=== PATIENT | female | born 1945 | race Caucasian/White ===

== ENCOUNTER 2017-04-22 16:58 | Observation (INO) | payer MEDICARE ==
[~2017-04-22 16:58] MED LIST: ALLEGRA 60 MG T60 MG PO; AMBIEN5 MG PO; ARTIFICIAL TEAR15 ML EACH EYE; ASPIRIN325 MG PO; ATIVAN0.5 MG PO; ATIVAN2 MG/ML IV; BAYER CHEWABLE81 MG PO; BOUDREAUXS113 GM TP; BREO ELLIPTA 11 EACH INH; CELEXA20 MG PO; COMBIVENT INH14.7 GM INH; COMBIVENT RESPIM4 GM; COREG12.5 MG PO; CRESTOR10 MG PO; DEXTROSE 50%/WA50 ML IV; DULCOLAX10 MG/SUPP RC; EFFEXOR50 MG PO; EFFEXOR75 MG PO; EUCERIN ORIGIN500 ML TP; FLORANEX / LACT1 TAB PO; GLUCAGEN1 MG/VIAL IM; GLUCAGEN1 MG/VIAL SC; GLUCAGON1 MG/KIT IM; GLUCAGON1 MG/KIT SQ; GLUCOPHAGE500 MG PO; HALOPERIDOL2 MG IM; HALOPERIDOL2 MG PO; HEALTHYLAX17 GM PO; HUMALOG 30100 UNITS/; HUMALOG 30100 UNITS/ SC; HYDROCODON-ACE1 EAC7 PO; HYDROCODONE-APA1 TAB PO; IMDUR30 MG PO; INSTA-GLUCOSE31 GM; IPRAT-ALBUT 0.5-3 ML UPD; K-DUR20 MEQ PO; LASIX20 MG PO; LEVAQUIN250 MG PO; LEVAQUIN500 MG PO; LEVOTHROID100 MCG PO; LEVOTHROID88 MCG PO; LOTRISONE CREAM45 GM TP; MAALOX PLUS X-355 ML PO; MAG-OX 400 MG400 MG PO; MILK OF MAGNESI30 ML PO; MIRALAX17 GM PO; MOTRIN600 MG PO; MYLANTA / MAALO30 ML PO; NAMENDA10 MG PO; NAMENDA5 MG PO; NAPROSYN250 MG PO; NITRO-DUR0.4 MG TRANSDERM; NITROSTAT0.4 MG SL; NORCO 5/325 TAB1 TA1 PO; NYSTATIN1 PWD TOPICAL; NYSTATIN60 GM TP; PEPCID20 MG PO; PHENERGAN25 M1 PO; PLAVIX75 MG PO; PRILOSEC20 MG PO; PROTONIX40 MG PO; SENNA8.6 MG PO; SENOKOT-S TABLE1 TAB PO; SODIUM CL 0.91000 ML IV; SYNTHROID125 MCG PO; SYNTHROID150 MCG PO; SYNTHROID200 MC1 PO; TOPAMAX50 MG PO; TOPROL XL25 MG PO; TRIAMCINOLONE A60 M1; TRIAMCINOLONE A60 M1 TP; TYLENOL 8 HOUR650 MG; TYLENOL ARTHRI650 MG PO; ULORIC40 MG PO; VASOTEC5 MG PO; VITAMIN B-12500 MCG PO; XOPENEX 1.1.25 MG/3 UPD; ZANTAC150 MG PO; ZESTRIL40 MG PO; ZETIA10 MG PO; ZOCOR10 MG PO; ZOCOR20 MG PO; ZYLOPRIM100 MG PO; ZYRTEC10 MG PO
[2017-04-22 17:49] LABS: BASOPHILS 0.1 % (0-2); EOSINOPHILS 2.5 % (0-7); HEMATOCRIT 48.8 % (36.0-48.0); HEMOGLOBIN 16.1 g/dL (12-16); IMMATURE GRANULOCYTES 0.6 % (0-5); LYMPHOCYTES 23.5 % (15-50); MCH 27.4 pg (26.0-34.0); MCV 83.1 fL (80.0-100.0); MEAN PLATELET VOLUME 9.4 fL (7.4-10.4); MONOCYTES 9.3 % (2-11); PLATELET COUNT 166 10x3/uL (130-400); RBC 5.87 10x6/uL (4.00-5.40); RDW 14.3 % (11.5-14.5); WBC 8.5 10x3/uL (4.8-10.8)
[2017-04-22 18:04] LABS: ALBUMIN 3.2 g/dL (3.4-5.0); ALKALINE PHOSPHATASE 204 U/L (46-116); ALT (SGPT) 19 U/L (10-68); BILIRUBIN - TOTAL 0.31 mg/dL (0.2-1.3); CALC OSMOLALITY 274 mosm/kg (275-300); CALCIUM 10.6 mg/dL (8.5-10.1); CARBON DIOXIDE 23.6 mmol/L (21.0-32.0); CHLORIDE - SERUM 106 mmol/L (98-107); GLUCOSE 91 mg/dL (74-106); POTASSIUM - SERUM 4.4 mmol/L (3.5-5.1); PROTEIN - SERUM 7.4 g/dL (6.4-8.2); SODIUM 137 mmol/L (136-145); UREA NITROGEN 15 mg/dL (7-18); eGFR NON AFRICAN AMERICAN 58 mL/min (90-120)
[2017-04-22 18:14] LABS: CKMB 0.2 U/L (0.0-3.6); CREATINE KINASE 39 UL (21-215); PRO BNP 968 pg/mL (0-125); TROPONIN-I 0.017 ng/mL (0.000-0.060)
--- NOTE | 2017-04-22 22:56 | NUR ---
PATIENT ARRIVED FROM THE ER VIA STRETCHER, ALERT. ORIENTED TO ROOM AND CALL LIGHT. DENIES PAIN OR NEEDS AT THIS TIME. WILL CONTINUE TO MONITOR.
[2017-04-23] VITALS (7 sets, daily range): BP systolic 110–154; BP diastolic 52–79; BMI 20.9
--- NOTE | 2017-04-23 07:35 | NUR ---
ASSESSMENT COMPLETED. ALERT, TALKTIVE. TELEMERTY SHOWS SB AT 54. SL TO LEFT ARM. DENIES ANY NEEDS. CALL LIGHT IN REACH WITH SR UP. WILL MONITOR
--- NOTE | 2017-04-23 11:04 | NUR ---
SLEEPING AT PRESENT. MONITOR SHOWS SINUS GUSTAVO @ RATE OF 47. WILL CONTINUE TO MONITOR.
[2017-04-23] MEDS ORDERED: COREG12.5 MG PO (12:29)
[2017-04-23] MEDS ORDERED: SYNTHROID88 MCG PO (12:38)
[2017-04-23] MEDS ORDERED: CALCIUM 500 +1 EAC3 PO (12:41)
[2017-04-23] MEDS ORDERED: REFRESH TEARS15 ML EACH EYE (12:43)
[2017-04-23] MEDS ORDERED: CRANBERRY 400 M1 TA1 PO (12:44)
--- NOTE | 2017-04-23 13:00 | NUR ---
LYING QUIETLY. DENIES ANY CHEST PAIN. CALL LIGHT IN REACH
--- NOTE | 2017-04-23 13:31 | NUR ---
RATIONALE FOR SCD'S EXPLAINED. REFUSED SCD'S
--- NOTE | 2017-04-23 14:07 | NUR ---
SPOKE WITH KAVEH MORTON CNP ABOUT PLAN FOR PATIENT. SHE IS GOING TO FINISH CYCLING THE ENZYMES AND THEN SEND THE PATIENT HOME. CALL WAS PLACED TO [facility] TO SEE IF THEY WOULD BE ABLE TO TAKE HER BACK ON A WEDNESDAY. SPOKE WITH JERED AND THEY WILL BE ABLE TO GET HER AT 1200 BUT NOT LATER. THEY ONLY HAVE A [employer] MILLING MACHINE OPERATOR FOR PART OF THE DAY. THIS INFORMATION WAS RELAYED TO KAVEH AND ORDER WILL BE PUT IN TONIGHT TO DISCHARGE IN AM. THIS INFORMATION WAS ALSO RELAYED TO PATIENTS NURSE, DONAVON. REPORT WILL NEED TO BE CALLED TO [phone] IN THE AM.
--- NOTE | 2017-04-23 17:50 | NUR ---
LYING QUIETLY. DENIES ANY NEEDS. SR UP WITH CALL LIGHT IN REACH
--- NOTE | 2017-04-23 19:29 | NUR ---
PT RESTING IN BED. SIGNED AND DATE ON BOARD. PT LAYING FLAT ON BACK. PT DID NOT HAVE O2 IN NARES. PUT BACK IN NARES AND PT SMILED AND SAID SHE FORGOT. PT ON 3L NC. PT LEFT FOREARM IV S/L. PT DENIES ANY NEEDS. NO S/S OF DISTRESS. WILL CPOC
--- NOTE | 2017-04-23 22:05 | NUR ---
2 UNITS GIVEN FOR A FSBS OF 194. PT HAD O2 OFF AGAIN. FACE IS FLUSHED. PUT BACK ON PT. PT DENIES ANY NEEDS AT THIS TIME. NO S/S OF DISTRESS. WILL CPOC
[2017-04-24] VITALS: BP 180/93
--- NOTE | 2017-04-24 02:00 | NUR ---
PT ASLEEP. RESPONDS TO VERBAL STIMULI. PT O2 3L NC. PT REPOSITIONED FOR COMFORT. PT DENIES ANY NEEDS. NO S/S OF DISTRESS. WILL CPOC
[2017-04-24 04:00] VITALS: BP 170/81
--- NOTE | 2017-04-24 06:02 | NUR ---
PT RESTING IN BED. BRIEF CHANGED. INCONT A MOD AMOUNT OF URINE. PT CLEANED AND LINEN CHANGED. PT OFFERED NOURISHMENT. PT DENIES ANY NEEDS. NO S/S OF DISTRESS. WILL CPOC
--- NOTE | 2017-04-24 07:32 | NUR ---
AM ROUNDS PT IN BED, WITH EYES CLOSED, EASILY AROUSES TO VOICE. RESP EVEN AND UNLABORED. LT HAND INFUSING NS AT 15CC/HR. BED LOW AND WHEELS LOCKED, BEDSIDE RAILS X2, CALL LIGHT IN REACH, NAD NOTED, WILL CONTINUE TO MONITOR.
[2017-04-24 08:28] VITALS: BP 141/72
--- NOTE | 2017-04-24 08:46 | NUR ---
NOTICED PT WAS AT HER DOOR, NAKED, PT CONFUSED, PULLED OUT IV, PULLED TELEMETRY AND OXYGEN TOO. REORIENTED PT AND HELPED HER BACK TO BED, PUT GOWN ON PT. PT DENIES ANY NEEDS. AM MEDS GIVEN AT THIS TIME. CALL LIGHT IN REACH, NAD NOTED, WILL CONTINUE TO MONITOR.
--- NOTE | 2017-04-24 11:35 | NUR ---
BLOOS SUGAR OF 210, 4UNITS OF HUMALOG GIVEN PER S/S. ALSO PROVIDED VERBAL AND WRITTEN DISCHARGE TEACHING TO PT. PT VERBALIZED UNDERSTANDING REGARDING TEACHING. PT ALL READY FOR SEED BUYER. DENIES ANY NEEDS AT THIS TIME. CALL LIGHT IN REACH, NAD NOTED, WILL CONTINUE TO MONITOR.
--- NOTE | 2017-04-24 11:43 | NUR ---
CALLED [facility] AT [phone] AND GAVE REPORT TO SHANAE COVARRUBIAS WHO WILL BE TAKING CARE OF PT.
--- NOTE | 2017-04-24 11:56 | NUR ---
[facility] STAFF HERE TO PICK PT UP. PT LEFT UNIT VIA WHEELCHAIR, NAD NOTED.
--- NOTE | 2017-04-27 12:01 | CN ---
PATIENT NAME:MADELINE FLORES MEDICAL RECORD: [id number] : 49 LOCATION:D. D.2121 ADMIT DATE: 04/22/17 ACCOUNT: [id number] CONSULTING PHYSICIAN: WANDER HA MD REFERRING PHYSICIAN: LJ LEDEZMA MD DATE OF CONSULTATION: 04/23/2017 HISTORY OF PRESENT ILLNESS: A 72-year-old female with a history of coronary artery disease, obstructive pulmonary disease, a somewhat poor historian, admitted with shortness of breath, fatigue, tiredness, and had some atypical chest pain. Enzymes negative at this point. The patient refused blood draws previously. ECG is sinus rafi, but no acute change. We are asked to see her concerning her cardiovascular status. PAST MEDICAL HISTORY: Includes; 1. History of hypertension. 2. Coronary artery disease. 3. Obstructive pulmonary disease. 4. Dementia. SOCIAL HISTORY: Currently resides in a fdc. MEDICATIONS: Include Plavix 75 mg every day, carvedilol 12.5 b.i.d., lisinopril 40 every day, Crestor 40 every day, aspirin 81 every day, [place] 5/325 one q.6 p.r.n., Ativan 0.5 q.4 p.r.n., Namenda 10 every day, Effexor 50 every day, insulin per scale, Synthroid 50 mcg every day. REVIEW OF SYSTEMS: Somewhat unobtainable per above. Somewhat rambling history. PHYSICAL EXAMINATION: GENERAL: Pleasant female, in no acute distress. VITAL SIGNS: Blood pressure 139/73, pulse 53 and regular. HEENT: Normocephalic, atraumatic. NECK: No bruits are noted. HEART: Regular. LUNGS: Lung medina have slightly prolonged expiratory phase. ABDOMEN: Soft, nontender. EXTREMITIES: Pulses 2+. No edema. DIAGNOSTIC DATA: ECG without acute change. IMPRESSION: Chest pain, somewhat atypical and I doubt true acute coronary syndrome. Initial enzymes were. We will check echocardiograph study. Further recommendations based on the above. TRANSINT:[id number] Voice Confirmation ID: [id number] DOCUMENT ID: [id number] CONSULT REPORT [id number] MADELINE FLORES WANDER HA MD at 1201 CC: [id number] DICTATION DATE: 04/23/17 0758 PAINTLESS DENT REPAIR TECHNICIAN: 04/23/17 0932 DIS IN 04/24/17 [place] [id number] [place] [id number]
== END 2017-04-24 11:57 ==
LOC: D.ER 16:58 → OBSVTIME 19:54 → D.M2 19:54
PROVIDERS: Emergency Medicine; Nurse Practitioner Acute Care; ADMIT Family Medicine
DX: R07.89 Other chest pain (principal); I69.919 Unspecified symptoms and signs involving cognitive functions following unspecified cerebrovascular disease; F01.50 Vascular dementia, unspecified severity, without behavioral disturbance, psychotic disturbance, mood disturbance, and anxiety; E11.22 Type 2 diabetes mellitus with diabetic chronic kidney disease; I12.9 Hypertensive chronic kidney disease with stage 1 through stage 4 chronic kidney disease, or unspecified chronic kidney disease; N18.3 Chronic kidney disease, stage 3 (moderate); I25.10 Atherosclerotic heart disease of native coronary artery without angina pectoris; Z95.5 Presence of coronary angioplasty implant and graft; J44.9 Chronic obstructive pulmonary disease, unspecified; F41.8 Other specified anxiety disorders; E03.9 Hypothyroidism, unspecified; K21.9 Gastro-esophageal reflux disease without esophagitis

== ENCOUNTER 2019-12-18 08:43 | Emergency (ER) | payer MEDICARE ==
[~2019-12-18] VITALS: Ht 162.6 cm; Wt 78.2 kg
[~2019-12-18 08:43] MED LIST changes: +CALCIUM 500 +1 EAC3 PO; +CRANBERRY 400 M1 TA1 PO; +REFRESH TEARS15 ML EACH EYE; +SYNTHROID88 MCG PO
[2019-12-18 08:48] VITALS: Ht 162.6 cm; Wt 78.2 kg
[2019-12-18] MEDS ORDERED: VITAMIN D1000 UNIT PO (08:50)
[2019-12-18] MEDS ORDERED: CRESTOR40 MG PO (08:51)
[2019-12-18] MEDS ORDERED: HYDROCODON-ACE1 EAC2 PO (08:52)
[2019-12-18] MEDS ORDERED: GABAPENTIN300 MG PO (08:52)
[2019-12-18] MEDS ORDERED: LISINOPRIL20 MG PO (08:54)
[2019-12-18 11:40] VITALS: BP 142/76
== END 2019-12-18 11:41 ==
LOC: D.ER 08:43
DX: F03.90 Unspecified dementia, unspecified severity, without behavioral disturbance, psychotic disturbance, mood disturbance, and anxiety (principal); W19.XXXA Unspecified fall, initial encounter; Y93.9 Activity, unspecified; Y92.9 Unspecified place or not applicable; Z86.73 Personal history of transient ischemic attack (TIA), and cerebral infarction without residual deficits; E11.9 Type 2 diabetes mellitus without complications; E07.9 Disorder of thyroid, unspecified; I25.2 Old myocardial infarction; J44.9 Chronic obstructive pulmonary disease, unspecified

== ENCOUNTER 2020-01-26 11:37 | Inpatient (IN) | payer MEDICARE ==
[~2020-01-26] VITALS: Ht 162.6 cm; Wt 92.0 kg
[2020-01-26] VITALS (12 sets, daily range): BP systolic 62–120; BP diastolic 30–80
[~2020-01-26 11:37] MED LIST changes: +CRESTOR40 MG PO; +GABAPENTIN300 MG PO; +HYDROCODON-ACE1 EAC2 PO; +LISINOPRIL20 MG PO; +VITAMIN D1000 UNIT PO
[2020-01-26] MEDS ORDERED: ASCORBIC ACID500 MG PO (12:05)
[2020-01-26] MEDS ORDERED: VITAMIN D1000 UNIT PO (12:06)
[2020-01-26] MEDS ORDERED: RISAMINE OINTM113 GM TP (12:06)
[2020-01-26] MEDS ORDERED: CRESTOR40 MG PO (12:07)
[2020-01-26] MEDS ORDERED: CRANBERRY TABLET (12:07)
[2020-01-26] MEDS ORDERED: SYNTHROID175 MCG PO (12:08)
[2020-01-26] MEDS ORDERED: GERI-LANTA (12:08)
[2020-01-26] MEDS ORDERED: SENNA LAXATIVE8.6 MG PO (12:09)
[2020-01-26] MEDS ORDERED: ULORIC80 MG PO (12:09)
[2020-01-26] MEDS ORDERED: ZINC-220220 MG PO (12:10)
[2020-01-26 14:10] LABS: BASOPHILS 0.2 % (0-2); EOSINOPHILS 0.5 % (0-7); HEMOGLOBIN 15.4 g/dL (12-16); IMMATURE GRANULOCYTES 0.7 % (0-5); LYMPHOCYTES 15.8 % (15-50); MCHC 32.1 g/dL (31.0-37.0); MCV 84.2 fL (80.0-100.0); MONOCYTES 8.5 % (2-11); NEUTROPHILS 74.3 % (40-80); RDW 16.3 % (11.5-14.5); WBC 8.9 10x3/uL (4.8-10.8)
[2020-01-26 14:14] LABS: PLATELET COUNT 242 10x3/uL (130-400)
[2020-01-26 14:19] LABS: CALC OSMOLALITY 276 mosm/kg (275-300); CARBON DIOXIDE 22.4 mmol/L (21.0-32.0); CHLORIDE - SERUM 99 mmol/L (98-107); CREATININE - SERUM 2.2 mg/dL (0.6-1.3); GLUCOSE 79 mg/dL (74-106); POTASSIUM - SERUM 4.4 mmol/L (3.5-5.1); SODIUM 131 mmol/L (136-145); UREA NITROGEN 55 mg/dL (7-18); eGFR NON AFRICAN AMERICAN 23 mL/min (90-120)
[2020-01-26 14:26] LABS: APTT 37.1 SECONDS (22.8-39.4); INR 0.93 (0.85-1.17); PROTIME 12.5 SECONDS (11.6-15.0)
--- NOTE | 2020-01-26 14:28 | NUR ---
AFTER MULTIPLE IV STICKS AND ATTEMPTS AT LAB DRAW, PT MOVED TO T4, FOR CENTRAL LINE PLACEMENT.
[2020-01-26 14:33] LABS: ALBUMIN 2.9 g/dL (3.4-5.0); ALKALINE PHOSPHATASE 131 U/L (30-120); ALT (SGPT) 16 U/L (10-68); BILIRUBIN - TOTAL 0.52 mg/dL (0.2-1.3); CKMB 4.4 U/L (0.0-3.6); CREATINE KINASE 386 UL (21-215); PROTEIN - SERUM 6.7 g/dL (6.4-8.2)
[2020-01-26 14:36] LABS: TROPONIN-I < 0.017 ng/mL (0.000-0.060)
--- NOTE | 2020-01-26 14:45 | NUR ---
DR HOFFMANN PLACING CENTRAL LINE AT THIS TIME. PT MONITORED BY CARDIAC MONITORING.
--- NOTE | 2020-01-26 14:55 | NUR ---
CENTRAL LINE PLACED BY DR HOFFMANN AT THIS TIME.
[2020-01-26 15:46] LABS: BILIRUBIN NEGATIVE (NEGATIVE); GLUCOSE NEGATIVE (NEGATIVE); KETONE NEGATIVE (NEGATIVE); NITRITE NEGATIVE (NEGATIVE); UROBILINOGEN NORMAL (NORMAL)
[2020-01-26 15:47] LABS: BACTERIA MANY /hpf (NEGATIVE); EPITHELIAL CELLS 0-5 /hpf (0-5); WHITE CELLS - URINE >50 /hpf (NEGATIVE)
--- NOTE | 2020-01-26 17:56 | NUR ---
REPORT CALLED TO [facility] AT THIS TIME. UNABLE TO TRANSPORT PATIENT ROOM WILL NOT BE CLEAN FOR 1 HOUR.
--- NOTE | 2020-01-26 18:37 | NUR ---
FSBS 20 AFT 25 ML DEXTROSE
--- NOTE | 2020-01-26 18:38 | NUR ---
AFTER SECOND 25ML DEXTROSE FSBS 42
--- NOTE | 2020-01-26 18:47 | NUR ---
SPOKE WITH DR KAHN REGARDING FSBS, GIVE PATIENT 50ML 50% DEXTROSE, AND CHANGE FLUIDS TO D5NS AT 125 ML/HR.
--- NOTE | 2020-01-26 18:58 | NUR ---
CONTACTED CARLOS IN ICU AND ADVISED THAT PATIENT WAS GIVEN DEXTROSE AND FLUIDS ARE CHANGING TO D5NS AT 125 ML/HR
--- NOTE | 2020-01-26 19:20 | NUR ---
NORMAL SALINE 125ML/HR ORDER DISCONTINUED PER MD ORDERS.
--- NOTE | 2020-01-26 20:00 | NUR ---
PT ARRIVED VIA STREATCHER WITH POLYSOMNOGRAPHER AWAKE A&OX1 HERSELF ONLY IN STABLE CONDITION. SHE CAN TELL ME WHERE SHE LIVES AT A HALF-WAY, BUT VOICES"I DONT KNOW"WHEN ASKED IF SHE KNOWS WHERE SHE IS OR WHY. VSS. SHE HAD LARGE INCONTINENT URINE IN A BRIEF. I ASKED IF SHE IS INCONTINENT AND SHE VOICED"YES". RECIVED T.O TO PUT ALBERT CATHETOR IN. UPON PUTTING CATHETOR IN, I NOTED A 1/2 INCH LASERATION ON HER INTERNAL POSTERIOR LABIA THAT IS DEEP RED IN COLOR WITH NO BLEEDING OR DRAINAGE. SHE C/O OF BEING "O THAT HURTS SO BAD" WHEN TOUCHING TO PUT IN ALBERT CATHEOTOR. I WAS VERY GENTLE AND EXPLAINED TO HER WHAT I WAS DOING THE INTIRE TIME. I ASKED HER IF SHE KNOWS WHAT HAPPENDED AND SHE DID NOT. HER URINE IS VERY THICK C SEDAMENT AND MILKY. SECURED TO UPPER THIGH. BED IS LEFT LOW,SIDE RIALSX2,ORIENTED TO CALL LIGHT AND SHE SAID "OK". BED ALARM IS ON
--- NOTE | 2020-01-26 21:32 | NUR ---
PT IS RESTING IN BED WITH EYES CLOSED, AWAKES EASILY. VSS. SHE VOICES "NO "TO PAIN. BS CHECKED AND IS 198, HOWEVER PT WAS HYPOGYLEMIC JUST 2 HOURS AGO IN ER AND RECIVED 2 AMPS OF D5W. WILL HOLD INSULIN AT THIS TIME PER NURSING JUDGEMENT. BED IS LEFT LOW,SIDE RAISLX2,CALL LIGHT WITHIN REACH. BED ALARM IS ON
--- NOTE | 2020-01-26 21:50 | NUR ---
TALKED WITH OG ASTUDILLO APN AT THIS TIME AND UNPDATED ABOUT PT STATUS. T.O TO GET ECHO IN THE AM DUE TO HYPOTENSION, NERISSA ON CKB, SEPSIS. AND IF MAP GETS BELOW 65 TO GIVE 500ML NS BOLUS. AND IF CONTINUE TO HAVE HYPOTENSION TO CALL POLO. T.O READ BACK CORRECT
--- NOTE | 2020-01-26 22:41 | NUR ---
PAGED AT THIS TIME
--- NOTE | 2020-01-26 23:00 | NUR ---
PT IS RESTING IN BED WITH EYES CLOSED. AWAKENS EASILY. IS A&OX1 WHICH WAS HER BASLINE WHEN SHE ARRIVED TO ME. NEW ORDERS TO START LEVOPHED IV TO TITRATE MAP ABOVE 65. STARTING NOW, SCANNED IN SEP. SHE VOICES"NO" TO PAIN. NO NEEDS OR C/O VOICED. BED IS LOW,SIDE RAISLX2, CALL LIGHT WIHTIN REACH. BED ALARM IS ON
[2020-01-27] VITALS (53 sets, daily range): BP systolic 83–134; BP diastolic 44–86; BMI 32.9
--- NOTE | 2020-01-27 00:45 | NUR ---
JUST TALKED WITH PT DAUGHTER NORI WHO IS POA. SHE PROVIDED PASSCODE. UPDATED HER ON PT STATUS AND CONFIRMED THAT IN THE EVEN OF HER MOTHER MEDICAL STATUS CHANGE THAT SHE WANTS UP TO DO ALL WE CAN DO FOR HER,CPR, MEDICINES, AND INTUBATION. SHE VERBALIZED "YES I WANT YOU TO DO ALL YOU CAN DO". CONFIRMED THIS WITH SHAY RASHID WELL.
--- NOTE | 2020-01-27 01:20 | NUR ---
PT IS RESTING IN BED WITH EYES CLOSED.AWAKES EASILY. VSS. VOICES "NO" TO PAIN OR C/O. BED IS LEFT LOW,SIDE RAILSX2,CALL LIGHT WITHIN REACH. BED ALARM ON. WILL CONINTUE TO MONITOR
--- NOTE | 2020-01-27 03:08 | NUR ---
PT IS RESTIN IN BED WITH EYES CLOSED. AWAKES EASILY. VSS. NO NEEDS OR C/O VOICED. BED IS LOW,SIDE RAISLX2,CALL [facility] DONAVAN WEBB. BED ALARM IS ON. WILL CONINTUE TO MONITOR
[2020-01-27 05:00] LABS: BASOPHILS 0.1 % (0-2); EOSINOPHILS 0.8 % (0-7); HEMATOCRIT 42.8 % (36.0-48.0); HEMOGLOBIN 13.8 g/dL (12-16); IMMATURE GRANULOCYTES 0.5 % (0-5); LYMPHOCYTES 13.6 % (15-50); MCH 27.3 pg (26.0-34.0); MCHC 32.2 g/dL (31.0-37.0); MCV 84.6 fL (80.0-100.0); MEAN PLATELET VOLUME 9.8 fL (7.4-10.4); MONOCYTES 8.7 % (2-11); NEUTROPHILS 76.3 % (40-80); PLATELET COUNT 228 10x3/uL (130-400); RBC 5.06 10x6/uL (4.00-5.40); RDW 15.9 % (11.5-14.5); WBC 9.5 10x3/uL (4.8-10.8)
--- NOTE | 2020-01-27 05:16 | NUR ---
PT IS RESTING IN BED WITH EYES CLOSED. VSS. AWAKES EAISLY. VOICES"IM COLD". I PROVIDED HER WITH A WARM BLANKET. NO OTHER NEEDS OR C/O VOICED. BED IS LOW,SIDE RIALSX2,CALL LIGHT WITHIN REACH. BED ALARM IS ON. WILL CONITNUE TO MONITOR
[2020-01-27 05:24] LABS: ANION GAP 11.9 mmol/L (8-16); BILIRUBIN - TOTAL 0.55 mg/dL (0.2-1.3); CALCIUM 9.2 mg/dL (8.5-10.1); CARBON DIOXIDE 23.9 mmol/L (21.0-32.0); POTASSIUM - SERUM 3.8 mmol/L (3.5-5.1); PROTEIN - SERUM 5.9 g/dL (6.4-8.2)
[2020-01-27 05:26] LABS: CREATININE - SERUM 1.2 mg/dL (0.6-1.3)
--- NOTE | 2020-01-27 06:25 | NUR ---
PT IS RESTING IN BED WITH EYES CLOSED. VSS. NO APPEARANT DISTRESS. BED IS LOW,SIDE RAILSX2,CALL LIGHT WITHIN REACH. BED ALARM IS ON
--- NOTE | 2020-01-27 07:00 | NUR ---
BEDSIDE REPORT RECEIVED. SHIFT ASSESSMENT COMPLETED PER FLOWSHEET, SEE FLOWSHEET FOR INFORMATION. NO ACUTE NEEDS OR DISTRESS NOTED AT THIS TIME. VSS. WILL CONT TO MONITOR.
--- NOTE | 2020-01-27 09:00 | NUR ---
NO ACUTE NEEDS OR DISTRESS NOTED AT THIS TIME. VSS. WILL CONT TO MONITOR.
--- NOTE | 2020-01-27 11:00 | NUR ---
REASSESSMENT COMPLETED PER FLOWSHEET, SEE FLOWSHEET FOR INFORMATION. VSS. WILL CONT TO MONITOR.
--- NOTE | 2020-01-27 13:00 | NUR ---
SPOKE WITH TESHA RASHID ABOUT PATIENT HAVING VAGINAL TEARING, SHE INSISTED I SPEAK WITH [facility] CASE MANAGEMENT. SPOKE WITH F[employer]RI[employer] CASE MANAGEMENT ABOUT VAGINAL TEAR, THEN SPOKE WITH CYLINDER CHECKER RASHAUN ABOUT VAGINAL TEARING. I WAS TOLD TO WAIT UNTIL THEY SPOKE WITH ADMINISTRATION BEFORE TAKING ANY ACTIONS. WAITING ON RESPONSE. WILL CONT TO MONITOR.
--- NOTE | 2020-01-27 15:00 | NUR ---
REASSESSMENT COMPLETED PER FLOWSHEET, SEE FLOWSHEET FOR INFORMATION. NO ACUTE NEEDS OR DISTRESS NOTED AT THIS TIME. SPOKE WITH REPAIRER SWITCHGEAR RASHAUN, WILL ORDER OBGYN CONSULT PER WILDA BURTON. WILL CONT TO MONITOR.
--- NOTE | 2020-01-27 16:47 | NUR ---
CONSULTED, SPOKE WITH HIM AND HE STATED "I WILL BE THERE BEFORE 7P.M BEFORE SHIFT CHANGE." NOTIFIED AND FUR LINER RASHAUN. WILL CONT TO MONITOR.
--- NOTE | 2020-01-27 17:00 | NUR ---
SPOKE WITH INTERACTIVE MARKETING STRATEGIST RASHAUN. CALLED AND STATED HE WOULD BE IN TOMORROW MORNING. WILL CONT TO MONITOR.
--- NOTE | 2020-01-27 19:00 | NUR ---
RECIVED SHIFT REPORT. OBSERVED ISOLATION PROTOCOL. PT IS RESTING IN BED WITH EYES CLOSED WAKES EASILY. SHE IS ALERT BUT CONFUSED. ONLY KNOWS HER NAME, DISORIENTED TO PLACE, TIME AND SITUATION. HER VSS. SHE VOICES "NO" TO PAIN BUT STATES"IM COLD". I COVERED HER UP WELL WITH BLANKETS. ALBERT OBSERVED HANGING TO GRAVITY AND DRAINING. RIGHT IJ CDI. ASSESSMENT DONE AND WILL DOC IN FLOW SHEET. BED IS LOW,SIDE RAISLX2,ORIENTED TO USE OF CALL LIGHT THAT IS WITHIN REACH. WILL CONTINUE TO MONITOR. BED ALARM IS ON
--- NOTE | 2020-01-27 21:12 | NUR ---
PT IS RESTING IN BED WITH EYES CLOSED. VSS. SHE MOVES SELF INDEPENDENTLY IN BED. SHE IS VERY CONFUSED IN CONVERSATION. HE TELLS ME"LEAVE ME ALONE, GO AWAY" AFTER TELLING HER THAT I AM HERE TO TAKE CARE OF HER. HE IS IN NO DISTRESS OS I LEAVE HER BE TO NOT MAKE ANXIOUS. HER BED IS LOW,SIDE RAISLX2,CALL LIGHT Feed.fmTOM REACH. WILL CONTINUE TO MONITOR
--- NOTE | 2020-01-27 22:50 | NUR ---
PT IS RESTING IN BED WITH EYES CLOSED. VSS. RE-ASSESSMENT DONE THAT THE PT ALLOWED ME TO DO. SHE ONCE AGAIN VOICED"GO AWAY". I ASKED HER IF SHE COULD TELL ME WHY SHE WANTED ME TO GO AWAY AND SHE VOICED"I DONT KNOW YOU". AFTER TRYING TO RE-OREINT HER TO WHERE SHE IS AND WHY, AND THAT IM HER NURSE SHE DID NOT VERBALIZE UNDERSTADING. SHE VOICES NO NEED OR C/O OF PAIN. BED IS LEFT LOW,SIDE RAISLX2,CALL LIGHT WITHIN REACH. WILL CONITNUE TO MONITOR
[2020-01-28] VITALS (24 sets, daily range): BP systolic 104–165; BP diastolic 60–103
--- NOTE | 2020-01-28 01:12 | NUR ---
PT IS RESTING IN BED WITH EYES CLOSED. VSS. NO DISTRESS NOTED. BED IS LOW,SIDE RAILSX2,CALL LIGHT WITHIN REACH. BED ALARM IS ON. WILL CONITNUE TO MONITOR
--- NOTE | 2020-01-28 03:15 | NUR ---
PT IS RERSTING IN BED WITH EYES CLOSED. AWAKES EASILY WHEN CALLED NAME. SHE IS STILL A&OX1. RE-ASSESSMENT DONE AT THIS TIME. VSS. SHE MOVES SELF IN BED INDEPENDENLTY. ALBERT CARE PROVIDED. PT WAS IRRITATED FOR ME TO DO THIS SAYING"DONT DO THAT, GET AWAY FROM ME". I TRIED TO RE-ORENT HER TO WHERE SHE IS AND WHY WITHOUT SUCCESS. SHE HAS HX OF DEMENTIA. SHE VOICES NO C/O OF PAIN OR NEEDS. BED IS LOW,SIDE RAILSX2,CALL LIGHT WITHIN REACH. BED ALARM IS ON.WILL CONINTUE TO MONITOR
--- NOTE | 2020-01-28 05:44 | NUR ---
PT HAD LARGE INCONTINENT BM IN BED, BROWN SOFT. CLEANED UP AND PROVIDED CHG BATH WITH COMPLETE LINEN CHANGE. PROVIDED ALBERT CATHETOR CARE. AND X2 ASSIT TO PULL UP IN BED. VS REMAINED STABLE. PT WAS VERY IRRIATABLE DURING THE CLEANING BUT SETTLED DOWN ONCE LEFT ALONE. BED WAS LEFT LOW,SIDE RAISLX2,CALL JASMYNE CUEVASTOM REACH. BED ALARM IS ON
--- NOTE | 2020-01-28 07:00 | NUR ---
BEDSIDE REPORT RECEIVED. SHIFT ASSESSMENT COMPLETED PER FLOWSHEET, SEE FLOWSHEET FOR INFORMATION. VSS. NO ACUTE NEEDS OR DISTRESS NOTED AT THIS TIME. PT RESTING IN BED WITH EYES CLOSED. AGITATED EASILY. WILL CONT TO MONITOR.
--- NOTE | 2020-01-28 09:00 | NUR ---
LINEN CHANGE AND BM NOTED. BROWING AT BEDSIDE AND STATED "THIS IS NORMAL AGING". WILL CONT TO MONITOR. VSS.
[2020-01-28 09:23] LABS: BASOPHILS 0.1 % (0-2); EOSINOPHILS 0.6 % (0-7); HEMATOCRIT 43.9 % (36.0-48.0); HEMOGLOBIN 14.3 g/dL (12-16); IMMATURE GRANULOCYTES 0.6 % (0-5); LYMPHOCYTES 12.2 % (15-50); MCH 27.3 pg (26.0-34.0); MCHC 32.6 g/dL (31.0-37.0); MCV 83.9 fL (80.0-100.0); MEAN PLATELET VOLUME 9.9 fL (7.4-10.4); MONOCYTES 9.4 % (2-11); NEUTROPHILS 77.1 % (40-80); PLATELET COUNT 226 10x3/uL (130-400); RBC 5.23 10x6/uL (4.00-5.40); RDW 16.1 % (11.5-14.5); WBC 8.5 10x3/uL (4.8-10.8)
[2020-01-28 09:40] LABS: CALCIUM 9.4 mg/dL (8.5-10.1); CARBON DIOXIDE 22.5 mmol/L (21.0-32.0); CREATININE - SERUM 0.9 mg/dL (0.6-1.3); MAGNESIUM - SERUM 1.3 mg/dL (1.8-2.4); POTASSIUM - SERUM 3.6 mmol/L (3.5-5.1)
[2020-01-28 09:41] LABS: ANION GAP 19.1 mmol/L (8-16); PHOSPHOROUS 1.2 mg/dL (2.5-4.9)
--- NOTE | 2020-01-28 11:00 | NUR ---
REASSESSMENT COMPLETED PER FLOWSHEET, SEE FLOWSHEET FOR INFORMATION. NO ACUTE NEEDS OR DISTRESS NOTED AT THIS TIME. VSS. WILL CONT TO MONITOR.
--- NOTE | 2020-01-28 13:00 | NUR ---
PT REPOSITIONED PER COMFORT. WILL CONT TO MONITOR.
--- NOTE | 2020-01-28 15:00 | NUR ---
REASSESSMENT COMPLETED PER FLOWSHEET, SEE FLOWSHEET FOR INFORMATION. NO ACUTE NEEDS OR DISTRESS NOTED AT THIS TIME. VSS. WILL CONT TO MONITOR.
--- NOTE | 2020-01-28 17:00 | NUR ---
PT REPOSITONED PER COMFORT. NO ACUTE NEEDS OR DISTRESS NOTED AT THIS TIME. VSS. WILL CONT TO MONITOR.
[2020-01-29] VITALS (24 sets, daily range): BP systolic 113–156; BP diastolic 61–108
--- NOTE | 2020-01-29 02:37 | NUR ---
PT GIVEN CHG BATH WITH LINEN CHANGE. TOLERATED WELL. WILL CONTINUE TO OBSERVE
[2020-01-29 05:25] LABS: BASOPHILS 0.1 % (0-2); EOSINOPHILS 0.2 % (0-7); HEMATOCRIT 44.7 % (36.0-48.0); HEMOGLOBIN 14.4 g/dL (12-16); IMMATURE GRANULOCYTES 0.5 % (0-5); LYMPHOCYTES 7.9 % (15-50); MCH 26.8 pg (26.0-34.0); MCHC 32.2 g/dL (31.0-37.0); MCV 83.2 fL (80.0-100.0); MEAN PLATELET VOLUME 9.7 fL (7.4-10.4); MONOCYTES 8.3 % (2-11); PLATELET COUNT 239 10x3/uL (130-400); RBC 5.37 10x6/uL (4.00-5.40); RDW 16.4 % (11.5-14.5)
[2020-01-29 05:29] LABS: WBC 11.2 10x3/uL (4.8-10.8)
[2020-01-29 05:43] LABS: ANION GAP 12.7 mmol/L (8-16); CARBON DIOXIDE 21.5 mmol/L (21.0-32.0); CREATININE - SERUM 0.9 mg/dL (0.6-1.3); MAGNESIUM - SERUM 1.9 mg/dL (1.8-2.4); POTASSIUM - SERUM 3.2 mmol/L (3.5-5.1)
--- NOTE | 2020-01-29 11:04 | NUR ---
REPORT RECEIVED FROM TONIE RASHIDTRIBAL DELEGATE COMPLETE CONFUSED CAN FOLLOW SOME INSTRUCTIONS DOES NOT COOPERATE WITH MANY INSTRUCTIONS
--- NOTE | 2020-01-29 11:06 | NUR ---
0900 RESTING QUIETLY WITH EYES CLOSED
--- NOTE | 2020-01-29 11:08 | NUR ---
1100 REKHA OLIVA SPEECH THERAPIST AT BEDSIDE PERFORMING SWALLOW EVAL RESULTS PUREED...ADA...RENAL DIET AND THIN LIQUIDS
--- NOTE | 2020-01-29 11:09 | NUR ---
1110 CXR COMPLETE ATTEMPTED TO GIVE APPLE SAUCE PT REFUSED
--- NOTE | 2020-01-29 12:20 | NUR ---
Nutrition follow-up: Speech approved pt to a renal consistent CHO pureed diet with thin liquids PO intake poor at this time; pt not following commands per nurse Labs reviewed Wt: 186# Will offer nutritional suppelent RDN following.
--- NOTE | 2020-01-29 12:59 | NUR ---
1200 REFUSED TO EAT ANY LUNCH
--- NOTE | 2020-01-29 13:00 | NUR ---
1300 DR DEVI ROUNDING ON PT
--- NOTE | 2020-01-29 21:33 | MORECARE ---
CASE MANAGEMENT DISCHARGE SUMMARY PATIENT: MADELINE FLORES UNIT: [id number] ADM DATE: 01/26/20 AGE: 74 : [birth year] SEX: F ROOM/BED: D.2312 AUTHOR: CECILIA SHIN PHYSICIAN: REFERRING PHYSICIAN: KIMBER KAHN MD DATE OF SERVICE: 01/29/20 Discharge Plan Patient Name: MADELINE FLORES [facility] : 1945 Planned Disposition: Anticipated Discharge Date: Discharge Date: Expected LOS: Initial Reviewer: [email or web address] Initial Review Date: 01/26/2020 Generated: 01/29/20 10:32 pm DCP- Discharge Planning Updated by [email or web address]: Fiona Vu on 01/29/20 8:[address] PATIENT IS A RESIDENT AT [facility] AND PLAN IS FOR HER TO RETURN THERE UPON DISCHARGE. CM WILL CONTINUE TO FOLLOW AND ASSIST NEEDED WITH DISCHARGE PLANNING NEEDS. Patient Name: MADELINE FLORES Page [phone] at 2133 All edits/amendments must be made on the electronic document DICTATION DATE: 01/29/202131 LIFESTYLE BLOCK FARMER: ROSSI 01/29/202131 RPT#: [id number] DC DATE: STATUS: ADM IN [facility] [address] [place] [address] END OF REPORT
[2020-01-30] VITALS (18 sets, daily range): BP systolic 106–143; BP diastolic 56–98
[2020-01-30 06:17] LABS: BASOPHILS 0.1 % (0-2); EOSINOPHILS 0.1 % (0-7); HEMATOCRIT 42.4 % (36.0-48.0); HEMOGLOBIN 13.9 g/dL (12-16); IMMATURE GRANULOCYTES 0.5 % (0-5); LYMPHOCYTES 9.9 % (15-50); MCH 27.4 pg (26.0-34.0); MCHC 32.8 g/dL (31.0-37.0); MCV 83.5 fL (80.0-100.0); MEAN PLATELET VOLUME 9.7 fL (7.4-10.4); MONOCYTES 7.4 % (2-11); PLATELET COUNT 227 10x3/uL (130-400); RBC 5.08 10x6/uL (4.00-5.40); RDW 16.6 % (11.5-14.5); WBC 11.5 10x3/uL (4.8-10.8)
--- NOTE | 2020-01-30 07:23 | NUR ---
1900 - REPORT RECEIVED. PT RESTING IN BED, DISORIENTED X3. ATTEMPTED TO REORIENT. ASSESSMENT COMPLETED, SEE FLOWSHEET. RT JUGULAR CVL INFUSING, SEE IV FLOWSHEET. 2100 - PT RESTING QUIETLY. 2300 - REASSESSMENT COMPLETED, SEE FLOWSHEET. 0100 - PT RESTING IN BED, NO ACUTE DISTRESS NOTED. 0300 - REASSESSMENT COMPLETED, SEE FLOWSHEET. 0500 - PT RESTING IN BED, REFUSED XRAY. WILL CONTINUE TO MONITOR.
[2020-01-30 07:32] LABS: ANION GAP 14.2 mmol/L (8-16); C-REACTIVE PROTEIN 3.6 mg/dL (0.0-0.9); CALCIUM 9.3 mg/dL (8.5-10.1); CARBON DIOXIDE 19.7 mmol/L (21.0-32.0); CREATININE - SERUM 0.8 mg/dL (0.6-1.3); POTASSIUM - SERUM 3.9 mmol/L (3.5-5.1)
--- NOTE | 2020-01-30 19:00 | NUR ---
REPORT RECEIVED. PT DISORIENTED X3, CALLING OUT "YES" AND "NO" TO ANY AND ALL QUESTIONS. ASSESSMENT COMPLETED, SEE FLOWSHEET. RT IJ CVL INFUSING, SEE IV FLOWSHEET. WILL CONTINUE TO MONITOR.
[2020-01-31 06:07] LABS: C-REACTIVE PROTEIN 2.2 mg/dL (0.0-0.9)
[2020-01-31 08:41] LABS: BASOPHILS 0 % (0-2); EOSINOPHILS 0 % (0-7); HEMATOCRIT 41.8 % (36.0-48.0); HEMOGLOBIN 13.4 g/dL (12-16); IMMATURE GRANULOCYTES 0.9 % (0-5); LYMPHOCYTES 12.2 % (15-50); MCHC 32.1 g/dL (31.0-37.0); MCV 84.1 fL (80.0-100.0); MEAN PLATELET VOLUME 9.9 fL (7.4-10.4); MONOCYTES 3.4 % (2-11); NEUTROPHILS 83.5 % (40-80); PLATELET COUNT 214 10x3/uL (130-400); RBC 4.97 10x6/uL (4.00-5.40)
[2020-01-31 08:42] LABS: WBC 6.8 10x3/uL (4.8-10.8)
[2020-01-31 10:41] LABS: ALBUMIN 2.2 g/dL (3.4-5.0); ANION GAP 12.6 mmol/L (8-16); BILIRUBIN - TOTAL 0.4 mg/dL (0.2-1.3); CALCIUM 9.5 mg/dL (8.5-10.1); CARBON DIOXIDE 19.8 mmol/L (21.0-32.0); CREATININE - SERUM 0.9 mg/dL (0.6-1.3); POTASSIUM - SERUM 4.4 mmol/L (3.5-5.1); PROTEIN - SERUM 5.5 g/dL (6.4-8.2)
--- NOTE | 2020-01-31 12:21 | NUR ---
Nutrition follow-up: Pt confused per nurse Diet: ADA consistent CHO Pt with very poor po intake at this time Labs reviewed Will need nutrition support started 2/2 poor po intake and confusion RDN following.
--- NOTE | 2020-01-31 14:49 | EC ---
PATIENT:MADELINE FLORES DATE OF SERVICE: 01/26/20 SEX: F MEDICAL RECORD: [id number] DATE OF : 49 LOCATION:[facility] AGE OF PATIENT: 74 ADMISSION DATE: 01/26/20 REFERRING PHYSICIAN: INTERPRETING PHYSICIAN: SARAI REGALADO MD ECHOCARDIOGRAM REPORT ECHO CHARGES 4 ECHO COMPLETE Date: 01/27/20 CLINICAL DIAGNOSIS: HYPOTENSION, NERISSA ON CKB, SEPSIS ECHOCARDIOGRAPHIC MEASUREMENTS (adult normal given) AC root (d.<3.7cm) 2.2 cm LV Septum d (<1.2 cm> 1.0 cm Valve Excursion 1.2 cm LV Septum (systole) 1.2 cm Left Atria (s.<4.0cm> 3.9 cm LVPW d(<1.2cm) 1.0 cm RV (d.<2.3cm) 3.1 cm LVPW (sytole) 1.3 cm LV diastole(<5.6CM) 4.1 cm MV E-F(>70mm/sec) cm LV systole 2.7 cm LVOT Diameter 1.8 cm MV exc.(>10mm) cm Est.ejection fraction (50-75%) % DOPPLER: LVIT cm/sec A 100 cm/sec E 52 cm/sec LA cm/sec RVSP 43.0 mmHg LVOT 106 cm/sec AOP1/2T m/s Asc. Ao 128 cm/sec RVOT 58 cm/sec RA cm/sec PA 68 cm/sec AV Gradient Peak 6.6 mmHg AV Mean 3.5 mmHg AV Area 2.2 cm MV Gradient Peak 4.5 mmHg MV Mean 1.9 mmHg MV Area cm COMMENTS: Repairer Resistance Welding Machines: Haja EVANGELISTA Shredder Operator: Rustam Regalado TAPE# PACS Pericardial Effusion N DATE OF SERVICE: PROCEDURE: Transthoracic echocardiogram. FINDINGS: 1. Left ventricle appears to be hyperdynamic. Ejection fraction 65% to 70%, but it was poorly visualized. 2. Left atrium is grossly normal. 3. Aortic valve appears to be normal. 4. Right ventricle is dilated, but normal function. ECHOCARDIOGRAM REPORT [id number] MADELINE FLORES 5. Tricuspid valve has trace tricuspid regurgitation. The RVSP appears to be normal. 6. The right atrium is normal. TRANSINT:[id number] Voice Confirmation ID: [id number] DOCUMENT ID: [id number] SARAI REGALADO MD at 1449 CC: [id number] DICTATION DATE: 01/30/20 1044 DOCUMENT IMAGING SPECIALIST: 01/30/20 1115 ADM IN [place] [id number] [place] [id number]
[2020-01-31 19:00] VITALS: BP 130/85
--- NOTE | 2020-01-31 19:00 | NUR ---
SHIFT ASSESSMENT COMPLETED. PT CARE ASSUMED, MONITORS ON AND WORKING, VSS. PT LYING IN BED RESTING. SEE FLOW SHEET FOR FURTHER DETAILS. WILL CONTINUE TO OBSERVE.
[2020-01-31 20:00] VITALS: BP 138/91
[2020-01-31 21:00] VITALS: BP 143/80
--- NOTE | 2020-01-31 21:00 | NUR ---
PT LYING IN BED RESTING, MONITORS ON AND WORKING, PT CONFUSED AND DISORIENTED. PT YELLS OUT, MONITORS ON AND WORKING, VSS. WILL CONTINUE TO OBSERVE.
[2020-01-31 22:00] VITALS: BP 135/98
[2020-01-31 23:00] VITALS: BP 140/78
--- NOTE | 2020-01-31 23:00 | NUR ---
NO CHANGES, SEE FLOW SHEET FOR FURTHER DETAILS. WILL CONTINUE TO OBSERVE.
[2020-02-01] VITALS (16 sets, daily range): BP systolic 115–145; BP diastolic 56–664
--- NOTE | 2020-02-01 01:00 | NUR ---
PT TURNED AND REPOSITIONED FOR COMFORT. MONITORS ON AND WORKING, VSS. WILL CONTINUE TO OBSERVE.
--- NOTE | 2020-02-01 03:00 | NUR ---
NO CHANGES, SEE FLOW SHEET FOR FURTHER DETAILS. WILL CONTINUE TO OBSERVE.
--- NOTE | 2020-02-01 05:00 | NUR ---
PT LYING IN BED RESTING, CHG BATH AND ORAL CARE DONE. PT TOLERATED WELL. MONITORS ON AND WORKING. WILL CONTINUE TO OBSERVE.
[2020-02-01 05:59] LABS: BASOPHILS 0.1 % (0-2); EOSINOPHILS 0 % (0-7); HEMATOCRIT 39.7 % (36.0-48.0); HEMOGLOBIN 12.5 g/dL (12-16); IMMATURE GRANULOCYTES 0.9 % (0-5); LYMPHOCYTES 13.8 % (15-50); MCH 26.8 pg (26.0-34.0); MCHC 31.5 g/dL (31.0-37.0); MEAN PLATELET VOLUME 9.7 fL (7.4-10.4); MONOCYTES 8.7 % (2-11); NEUTROPHILS 76.5 % (40-80); PLATELET COUNT 225 10x3/uL (130-400); RBC 4.67 10x6/uL (4.00-5.40); RDW 17.3 % (11.5-14.5); WBC 8.5 10x3/uL (4.8-10.8)
[2020-02-01 06:37] LABS: ALBUMIN 2.3 g/dL (3.4-5.0); BILIRUBIN - TOTAL 0.38 mg/dL (0.2-1.3); CALCIUM 9.8 mg/dL (8.5-10.1); CARBON DIOXIDE 19.2 mmol/L (21.0-32.0); CREATININE - SERUM 0.9 mg/dL (0.6-1.3); POTASSIUM - SERUM 4.2 mmol/L (3.5-5.1); PROTEIN - SERUM 5.4 g/dL (6.4-8.2)
--- NOTE | 2020-02-01 10:58 | NUR ---
Nutrition follow-up: Pt sleeping; in isolation Receiving a consistent CHO diet; however, po intake has been very poor due to pts confusion. Labs reviewed If medically feasible, recommend NGT placement and TF started Would start Osmolite 1.0 promise @ 20 ml/hr with increase to goal rate of 50 ml/hr with 100 ml H2O flush q [address]N following.
--- NOTE | 2020-02-01 15:28 | NUR ---
PT SCREAMING IN BED. INSTRUCT TO PLEASE KIND OF QUIET DOWN. SHE STATES NO.
[2020-02-02] VITALS (16 sets, daily range): BP systolic 128–143; BP diastolic 75–96; BMI 32.0
--- NOTE | 2020-02-02 08:00 | NUR ---
AROUSES TO VERBAL STIMULI BUT UNABLE TO COMMUNICATE DUE TO DENEMTIA. CONTINUED DROPPLET ISOLATION. CONTINUES HIFLOW AT 14L N/C. ALBERT CATH PATENT WITH REINA URINE. IVF INFUSING AT PRESCRIBED RATE TO RT. IJ WITH NO S/S OF INFECTION/INFILTRATION. REFUSES BREAKFAST WITH ORAL CARE GIVEN WITH PATINET SPITTING AT TIMES.
--- NOTE | 2020-02-02 10:00 | NUR ---
NO CHANGE IN CONDITION. PATIENT REPOSITIONED FOR COMFORT WITH PATIENT CONTINUED YELLING BUT IS QUEIT WHEN LEFT ALONE. CONTINUED DROPLET ISOLATION WITH NON PRODUCTIVE COUGH NOTED
--- NOTE | 2020-02-02 12:00 | NUR ---
REFUSED LUNCH WITH CONTINUED SPITTING. RESTING WITH EYES CLOSED WITH RESP EVEN WITH DECREASE DYSPNEA. O2 14L N/C. O2 SAT 93%. CONTINUED DROPLET ISLATION
--- NOTE | 2020-02-02 14:00 | NUR ---
RESTING WITH EYES CLOSED. RESP EVEN AND UNLABORED. ALBERT CATH PATENT. IVF INFUSING AT PRESCRIBED RATE. REPOSITIONED FOR COMFORT. FALL PRECAUTIONS IN PLACE.
--- NOTE | 2020-02-02 16:00 | NUR ---
NO DUSPNEA NOTED WITH SCD'S ON AT THIS TIME. AROUSES TO VOICE. RT. IJ INTACT WITH IVF INFUSING W/O S/S OF INFECTION/INFILTRATION. ALBERT CATH PATENT WITH REINA URINE. CONTINUED DROPLET ISOLATION.
--- NOTE | 2020-02-02 17:26 | MORECARE ---
CASE MANAGEMENT DISCHARGE SUMMARY PATIENT: MADELINE FLORES UNIT: [id number] ADM DATE: 01/26/20 AGE: 74 : 49 SEX: F ROOM/BED: D.2312 AUTHOR: CECILIA SHIN PHYSICIAN: REFERRING PHYSICIAN: KIMBER KAHN MD DATE OF SERVICE: 02/02/20 Discharge Plan Patient Name: MADELINE FLORES [facility] [facility] 1945 Planned Disposition: Nursing Facility KIMBERLY Cert Anticipated Discharge Date: Discharge Date: Expected LOS: Initial Reviewer: [email or web address] Initial Review Date: 01/26/2020 Generated: 02/02/20 6:26 pm DCP- Discharge Planning Updated by [email or web address]: Fiona Vu on 01/29/20 8:[address] PATIENT IS A RESIDENT AT [facility] AND PLAN IS FOR HER TO RETURN THERE UPON DISCHARGE. CM WILL CONTINUE TO FOLLOW AND ASSIST NEEDED WITH DISCHARGE PLANNING NEEDS. Last DP export: 01/29/20 8:33 p Patient Name: MADELINE FLORES Page [id number] at 1726 All edits/amendments must be made on the electronic document DICTATION DATE: 02/02/201725 LIGHTNING ROD ERECTOR: ROSSI 02/02/201725 RPT#: [id number] DC DATE: STATUS: ADM IN [facility] [address] [place] [address] END OF REPORT
--- NOTE | 2020-02-02 17:34 | MORECARE ---
CASE MANAGEMENT DISCHARGE SUMMARY PATIENT: MADELINE FLORES UNIT: [id number] ADM DATE: 01/26/20 AGE: 74 : 49 SEX: F ROOM/BED: D.2312 AUTHOR: CECILIA SHIN PHYSICIAN: REFERRING PHYSICIAN: KIMBER KAHN MD DATE OF SERVICE: 02/02/20 Discharge Plan Patient Name: MADELINE FLORES Facility: [facility]:[place] : 1945 Planned Disposition: Nursing Facility KIMBERLY Cert Anticipated Discharge Date: Discharge Date: Expected LOS: Initial Reviewer: [id number] Initial Review Date: 01/26/2020 Generated: 02/02/20 6:33 pm DCP- Discharge Planning Updated by [email or web address]: Fiona Vu on 01/29/20 8:[address] PATIENT IS A RESIDENT AT [facility] AND PLAN IS FOR HER TO RETURN THERE UPON DISCHARGE. CM WILL CONTINUE TO FOLLOW AND ASSIST NEEDED WITH DISCHARGE PLANNING NEEDS. DCPIA - Discharge Planning Initial Assessment Updated by [id number]: Fiona Vu on 02/02/20 5:31 pm * Is the patient Alert and Oriented? No * PCP [facility] * Pharmacy [facility] * Preadmission Environment [employer] [facility] * Facility Name [facility] * ADLs Partial Dependent * Partial ADLs (Assistance needed) Ambulation Bathing Dressing Eating Medication Management Toileting Transfers * List name and contact numbers for known caregivers / representatives who currently or will assist patient after discharge: NORI GALINDO [phone], * Verbal permission to speak to the caregivers and representatives has been obtained from the patient. Yes * Community resources currently utilized None * Additional services required to return to the preadmission environment? No * Can the patient safely return to the preadmission environment? Yes * Has this patient been hospitalized within the prior 30 days at any hospital? No Last DP export: 02/02/20 4:26 p Patient Name: MADELINE FLORES Page [id number] at 1463 All edits/amendments must be made on the electronic document DICTATION DATE: 02/02/20 7835 INTERNET MARKETING ANALYST: ROSSI 02/02/20 1733 RPT#: [id number] DC DATE: STATUS: ADM IN [facility] [address] [place] [address] END OF REPORT
--- NOTE | 2020-02-02 18:00 | NUR ---
AROUSES TO STIMULI AND REPOSITIONED IN BED. REPLACED O2 ON PATIENT DUE TO PATIENT REMOVING. O2 SAT 92% AT THIS TIME. INTERMITTANT YELLING WITH NO FACIAL GRIMACING NOTED DUE TO PAIN.
--- NOTE | 2020-02-02 20:34 | NUR ---
RECIEVED REPORT. LAYING IN BED WITH EYES CLOSED. EASILY AROUSES WITH VERBAL STIMULI. STATES YELLING OUT UNCOMPREHENSIBLE WORDS. O2@ 14 LITERS PER HF CANNULA. RT IJ WITH BICARB AND PROCAL INFUSING. REMAINS IN DROPLET ISOLATION D/T + COVID.
[2020-02-03] VITALS (23 sets, daily range): BP systolic 114–172; BP diastolic 70–106
--- NOTE | 2020-02-03 00:21 | NUR ---
RESTING IN BED WITH EYES CLOSED AT THIS TIME. PLACED O2 BACK IN NARES AND REPOSITIONED B/P CUFF. F/C INTACT WITH SCANT AMT OF CLEAR YELLOW URINE IN BEDSIDE DRAINAGE BAG. IV CONT TO INFUSE TO LT IJ. NO OBVIOUS S/S OF DISTRESS OBSERVED.
--- NOTE | 2020-02-03 02:19 | NUR ---
LAYING IN BED WITH EYES CLOSED. LEAVING O2 IN PLACE. RT REPLACED O2 SENSOR AND NOW READING 98%. FEET ARE CYANOTIC ON SOLES. F/C INTACT. NO OBVIOUS S/S OF DISTRESS OBSERVED.
--- NOTE | 2020-02-03 04:00 | NUR ---
LAYING IN BED WITH EYES CLOSED. COMPLETE LINEN CHANGE AND GOWN CHANGED. DRESSING TO RT IJ COMMING LOOSE AND CHANGED. WARM BLANKET APPLIED AND FEET ARE NOT CYANOTIC. PT STATED " THAT FEELS GOOD". PULLED UP IN BED AND RESTING WITH EYES CLOSED AT THIS TIME. HOB ELEVATED AND O2 IN PLACE. NO OBVIOUS S/S OF DISTRESS OBSERVED.
[2020-02-03 05:01] LABS: BASOPHILS 0.1 % (0-2); EOSINOPHILS 0 % (0-7); HEMATOCRIT 38.3 % (36.0-48.0); HEMOGLOBIN 12.3 g/dL (12-16); IMMATURE GRANULOCYTES 1.2 % (0-5); LYMPHOCYTES 16.4 % (15-50); MCH 27.3 pg (26.0-34.0); MCHC 32.1 g/dL (31.0-37.0); MCV 84.9 fL (80.0-100.0); MEAN PLATELET VOLUME 9.5 fL (7.4-10.4); MONOCYTES 7.4 % (2-11); NEUTROPHILS 74.9 % (40-80); PLATELET COUNT 184 10x3/uL (130-400); RBC 4.51 10x6/uL (4.00-5.40); RDW 17.6 % (11.5-14.5); WBC 9.4 10x3/uL (4.8-10.8)
[2020-02-03 05:13] LABS: ANION GAP 14.4 mmol/L (8-16); CALCIUM 10.2 mg/dL (8.5-10.1); CARBON DIOXIDE 20.9 mmol/L (21.0-32.0); MAGNESIUM - SERUM 1.6 mg/dL (1.8-2.4); POTASSIUM - SERUM 4.3 mmol/L (3.5-5.1); PRE-ALBUMIN 22.2 mg/dL (18.0-35.7)
--- NOTE | 2020-02-03 06:34 | NUR ---
LYING IN BED WITH EYES CLOSED. O2@ [address] STAT LOCK REPLACED ON F/C. NO S/S OF DISTRESS OBSERVED. WILL CONT. POC.
--- NOTE | 2020-02-03 07:00 | NUR ---
BEDSIDE REPORT RECEIVED. SHIFT ASSESSMENT COMPLETED PER FLOWSHEET, SEE FLOWSHEET FOR INFORMATION. NO ACUTE NEEDS OR DISTRESS NOTED AT THIS TIME. VSS. WILL CONT TO MONITOR.
--- NOTE | 2020-02-03 08:46 | NUR ---
[facility] UPDATE GIVEN. VSS. WILL CONT TO MONITOR.
--- NOTE | 2020-02-03 11:00 | NUR ---
CHG BEDBATH GIVEN, COMPLETE LINEN CHANGE. PT YELLED THE WHOLE TIME, TRIED TO REORIENT PT TP PERSON, PLACE, TIME, AND SITUATION. PT UNABLE TO ORIENT. REASSESSMENT COMPLETED PER FLOWSHEET, SEE FLOWSHEET FOR INFORMATION. VSS. WILL CONT TO MONITOR.
--- NOTE | 2020-02-03 11:15 | NUR ---
CVL DRESSING CHANGED DUE TO SATURATED WITH BLOOD. WILL CONT TO MONITOR.
--- NOTE | 2020-02-03 13:00 | NUR ---
PT RESTING IN BED WITH NO ACUTE NEEDS OR DISTRESS NOTED AT THIS TIME. VSS. WILL CONT TO MONITOR.
--- NOTE | 2020-02-03 15:00 | NUR ---
REASSESSMENT COMPLETED PER FLOWSHEET, SEE FLOWSHEET FOR INFORMATION. NO ACUTE NEEDS OR DISTRESS NOTED AT THIS TIME. PT RESTING IN BED WITH EYES CLOSED. WILL CONT TO MONITOR.
--- NOTE | 2020-02-03 17:00 | NUR ---
250 OF URINE OUTPUT FROM ALBERT, FLUSHED ALBERT WITH 30ML OF SALINE, 30ML OF CLEAR FLUID RECEIVED AFTER. NO EXTRA FLUIDS RECIEVED. NOTIFIED, NO NEW ORDERS RECEIVED. VSS. WILL CONT TO MONITOR.
--- NOTE | 2020-02-03 19:00 | NUR ---
PT ASSESSMENT COMPLETED AT THIS TIME, NO CHANGES NOTED FROM NURSE REPORT, PT LETHARGIC AND RESPONDS TO PAIN, RESP EVEN AND NON LABORED, VSS, WILL MONITOR FOR CHANGES
--- NOTE | 2020-02-03 20:42 | NUR ---
PT ASSESSMENT COMPLETED AT THIS TIME, NO CHANGES NOTED FROM NURSE REPORT, PT RESTING WITH EYES CLOSED, PT AWAKES TO LIGHT STIMULATION AND MOANS OUT, PT UNABLE TO FOLLOW DIRECTIONS. VSS AT THIS TIME
--- NOTE | 2020-02-03 21:00 | NUR ---
PT RESTING IWHT EYES CLOSED, RESP EVEN, NO CHANGES NOTED, VSS
--- NOTE | 2020-02-03 23:53 | NUR ---
PT REASSESSMENT COMPLETED AT THIS TIME, NO CHANGES NOTED FROM PREVIOUS EXAM, VSS
[2020-02-04] VITALS (24 sets, daily range): BP systolic 119–163; BP diastolic 64–94
--- NOTE | 2020-02-04 01:00 | NUR ---
pt resting with eyes closed, no changes noted, vss, will monitor for changes
--- NOTE | 2020-02-04 03:00 | NUR ---
pt reassessment completed at this time, no changes noted from previous exam, vss
--- NOTE | 2020-02-04 05:00 | NUR ---
PT RESTING WITH EYES CLOSED, NO DISTRESS NOTED, VSS
--- NOTE | 2020-02-04 07:00 | NUR ---
BEDSIDE REPORT RECEIVED. SHIFT ASSESSMENT COMPLETED PER FLOWSHEET, SEE FLOWSHEET FOR INFORMATION. NO ACUTE NEEDS OR DISTRESS NOTED AT THIS TIME. VSS. WILL CONT TO MONITOR.
--- NOTE | 2020-02-04 09:00 | NUR ---
PT REPOSITONED PER COMFORT. NO ACUTE NEEDS OR DISTRESS NOTED AT THIS TIME. PT ASYSTOLE ON MONITOR, PT PULLED OFF ELECTRODES. REPLACED ALL ELECTRODES AND COVERED WITH BLANKET, HR 74. WILL CONT TO MONITOR.
--- NOTE | 2020-02-04 11:00 | NUR ---
REASSESSMENT COMPLETED PER FLOWSHEET, SEE FLOWSHEET FOR INFORMATION. VSS. PT RESTING IN BED WITH NO ACUTE NEEDS OR DISTRESS. WILL CONT TO MONITOR.
--- NOTE | 2020-02-04 13:00 | NUR ---
PT RESTING IN BED WITH EYES CLOSED. NO ACUTE NEEDS OR DISTRESS NOTED AT THIS TIME. VSS. WILL CONT TO MONITOR.
--- NOTE | 2020-02-04 15:00 | NUR ---
REASSESSMENT COMPLETED PER FLOWSHEET, SEE FLOWSHEET FOR INFORMATION. NO ACUTE NEEDS OR DISTRESS NOTED AT THIS TIME. VSS. WILL CONT TO MONITOR.
--- NOTE | 2020-02-04 17:00 | NUR ---
NO ACUTE NEEDS OR DISTRESS NOTED AT THIS TIME. VSS. WILL CONT TO MONITOR.
--- NOTE | 2020-02-04 21:44 | NUR ---
1900 PT ASSESSMENT COMPLETED AT THIS TIME, NO CHANGES NOTED FROM NURSE REPORT, PT RESPONDS TO VOICE AND LIGHT TOUCH, PT ONLY MOANS OUT AND DOES NOTE FOLLOW COMMANDS, PT ON HIGH FLOW NC, VSS, WILL MONITOR FOR CHANGES 2100 PT GIVEN MEDS AT THIS TIME, NO CHANGES NOTED, VSS, WILL MONITOR FOR CHANGES
--- NOTE | 2020-02-04 23:00 | NUR ---
PT REASSESSMENT COMPLETED AT THSI TIME, NO CHANGES NOTED FROM PREVIOUS EXAM, VSS
[2020-02-05] VITALS (23 sets, daily range): BP systolic 134–165; BP diastolic 81–125
--- NOTE | 2020-02-05 01:00 | NUR ---
PT RESTING WITH EYES CLOSED, NO DISTRESS NOTED, VSS
--- NOTE | 2020-02-05 03:00 | NUR ---
PT REASSESSMENT COMPLETED AT THIS TIME, NO CHANGES NOTED FROM PREVIOUS EXAM, VSS
--- NOTE | 2020-02-05 05:00 | NUR ---
PT RESTING WITH EYES CLOSED, NO DISTRESS NOTED
[2020-02-05 06:19] LABS: ANION GAP 12.7 mmol/L (8-16); CALCIUM 10.8 mg/dL (8.5-10.1); CARBON DIOXIDE 20.6 mmol/L (21.0-32.0); CREATININE - SERUM 1.2 mg/dL (0.6-1.3); MAGNESIUM - SERUM 2.2 mg/dL (1.8-2.4); PHOSPHOROUS 2.6 mg/dL (2.5-4.9); POTASSIUM - SERUM 5.3 mmol/L (3.5-5.1)
[2020-02-05 06:53] LABS: HEMATOCRIT 38.5 % (36.0-48.0); HEMOGLOBIN 12.3 g/dL (12-16); MCH 27.1 pg (26.0-34.0); MCHC 31.9 g/dL (31.0-37.0); MCV 84.8 fL (80.0-100.0); MEAN PLATELET VOLUME 10.3 fL (7.4-10.4); PLATELET COUNT 158 10x3/uL (130-400); RBC 4.54 10x6/uL (4.00-5.40); RDW 17.5 % (11.5-14.5); WBC 11.8 10x3/uL (4.8-10.8)
--- NOTE | 2020-02-05 07:15 | NUR ---
REPORT RECEIVED. PT RESTING QUIETLY. ON COVID PRECAUTIONS. PT HAS A ALBERT AND IS WEARING O2 AT 7L VIA HIGH FLOW NC. PT IS A FSBS ACHS. PT HAS A RIGHT IJ WITH PROCAL AND NORMAL SALINE INFUSING. BED IN LOWEST POSITION. BED ALARM ON. SIDE RAILS UP X2. WILL CONTINUE TO MONITOR.
--- NOTE | 2020-02-05 09:41 | NUR ---
DR POLO ROUNDING ON PT. NO NEW ORDERS AT THIS TIME. WILL CONTINUE TO MONITOR.
[2020-02-05 10:23] LABS: LYMPHOCYTES 11 % (15-50); MONOCYTES 14 % (2-11); NEUTROPHILS 71 % (40-80); PLATELET ESTIMATE NORMAL
--- NOTE | 2020-02-05 10:50 | NUR ---
Nutrition follow-up: Pt sleeping; confused per nurse No PO intake 2/2 confusion ProcalAmine PPN @ 75 ml/hr Labs reviewed Wt: 228# Pt is not meeting estimated energy needs with ProcalAmine PPN Recommend NGT vs PEG tube placement and tube feeding of Osmolite 1.0 promise started. RDN following.
--- NOTE | 2020-02-05 11:35 | NUR ---
BLOOD SUGAR CHECKED. COVERED WITH 2 UNITS. PT WHIMPERED WHEN I STUCK HER FINGER, BUT WENT RIGHT BACK TO SLEEP. BED ALARM ON. WILL CONTINUE TO MONITOR.
--- NOTE | 2020-02-05 12:55 | NUR ---
ATTEMPTED TO CALL DAUGHTERNORI. LEFT MESSAGE ON VOICEMAIL UPDATING ABOUT NO VISITORS IN ICU AND US CALLING THE FAMILY A COUPLE OF TIMES A DAY TO KEEP THEM UPDATED. WILL CONTINUE TO MONITOR.
--- NOTE | 2020-02-05 18:31 | NUR ---
PT RESTING QUIETLY. BED IN LOWEST POSITION. BED ALARM ON. WILL CONTINUE TO MONITOR.
--- NOTE | 2020-02-05 19:30 | NUR ---
PT LETHARGIC, WILL NOT OPEN EYES, O2 @ 7L VIA N/C, RIGHT IJ CVL INTACT WITH IVF'S INFUSING, ALBERT PATENT TO BSD, GENERALIZED EDEMA NOTED, WILL CONT TO MONITOR
--- NOTE | 2020-02-05 21:10 | NUR ---
CALLED PT'S DAUGHTER, UPDATED ON STATUS AND ANSWERED QUESTIONS R/T PT STATUS
--- NOTE | 2020-02-05 22:00 | NUR ---
PT OPENS EYES TO STIMULI, WASHED EYES, RESPONDS TO NAME BUT WILL NOT FOLLOW COMMANDS, MOANS TO STIMULI
[2020-02-06] VITALS (20 sets, daily range): BP systolic 92–186; BP diastolic 54–122
[2020-02-06 05:33] LABS: ALBUMIN 2.4 g/dL (3.4-5.0); ANION GAP 16.6 mmol/L (8-16); BILIRUBIN - TOTAL 1.08 mg/dL (0.2-1.3); CALCIUM 10.4 mg/dL (8.5-10.1); CARBON DIOXIDE 21.6 mmol/L (21.0-32.0); CREATININE - SERUM 1.2 mg/dL (0.6-1.3); PHOSPHOROUS 2.4 mg/dL (2.5-4.9); POTASSIUM - SERUM 5.2 mmol/L (3.5-5.1); PROTEIN - SERUM 5.3 g/dL (6.4-8.2)
[2020-02-06 05:34] LABS: BASOPHILS 0.3 % (0-2); EOSINOPHILS 0 % (0-7); HEMATOCRIT 40.3 % (36.0-48.0); HEMOGLOBIN 13.2 g/dL (12-16); IMMATURE GRANULOCYTES 1.8 % (0-5); LYMPHOCYTES 11.3 % (15-50); MCH 27.5 pg (26.0-34.0); MCHC 32.8 g/dL (31.0-37.0); MEAN PLATELET VOLUME 10.9 fL (7.4-10.4); MONOCYTES 6.5 % (2-11); NEUTROPHILS 80.1 % (40-80); PLATELET COUNT 147 10x3/uL (130-400); RDW 16.9 % (11.5-14.5); WBC 12.4 10x3/uL (4.8-10.8)
--- NOTE | 2020-02-06 06:18 | NUR ---
PT EDEMATOUS, RING ON LEFT HAND VERY TIGHT, REMOVED WITH SOME DIFFICULTY, PLACED IN BAG AND CALLED NORI(DAUGHTER) TOLD HER I WOULD LEAVE IT WITH THE DAY CHARGE NURSE
--- NOTE | 2020-02-06 06:21 | NUR ---
CALLED PHARMACY FOR A PHOSPHOROUS RIDER FOR PHOSPHOROUS LEVEL OF 2.4
--- NOTE | 2020-02-06 07:15 | NUR ---
REPORT RECEIVED. PT RESTING QUIETLY. SHE HAS A ALBERT. O2 AT 7L VIA HIGH FLOW NC. SHE GETS FSBS ACHS. SHE IS CONFUSED. SHE IS ON COVID PRECAUTIONS. PT HAS A RIGHT SUBCLAVIAN CENTRAL LINE WITH PROCALAMINE INFUSING AT 75ML/HR. HER PHOSPHOROS IS BEING REPLACED AT THIS TIME VIA IV. BED IN LOWEST POSITION. SIDE RAILS UP X2. BED ALARM ON. WILL MONITOR.
--- NOTE | 2020-02-06 09:30 | NUR ---
PT RESTING QUIETLY. NO DISTRESS NOTED. BED ALARM ON. WILL CONTINUE TO MONITOR.
--- NOTE | 2020-02-06 12:05 | NUR ---
ELEVATED BP. MOVED CUFF TO LEFT ARM. 169/92. DR MELENDREZ IN UNIT. GOT HYDRALAZINE Q6PRN ORDERED. WILL ADMINISTER AND MONITOR.
--- NOTE | 2020-02-06 13:03 | NUR ---
ORAL CARE DONE. MOISTURIZED LIPS. PT TOLERATED WELL. WILL CONTINUE TO MONITOR.
--- NOTE | 2020-02-06 15:15 | NUR ---
REASSESSMENT DONE AND CHARTED.
--- NOTE | 2020-02-06 18:43 | NUR ---
PT RED IN THE FACE. ELEVATED BP. PRN HYDRALAZINE GIVEN. TEMPORAL TEMP 98.8. APPLIED COLD WET RAG TO FACE. TURNED ON AIR IN ROOM. WILL CONTINUE TO MONITOR.
--- NOTE | 2020-02-06 19:30 | NUR ---
PT LETHARGIC, WITHDRAWS TO STIMULI, GROANS AND WITH UNINTELLIGIBLE SPEECH, LUNGS CLEAR, O2 @ 7L VIA N/C, RIGHT IJ CVL INTACT WITH IVF'S INFUSING, ALBERT PATENT TO BSD WITH CLEAR YELLOW URINE, GENERALIZED EDEMA NOTED, VITALS STABLE
--- NOTE | 2020-02-06 20:40 | NUR ---
CALLED STATUS UPDATE TO PT'S DAUGHTER NORI
--- NOTE | 2020-02-06 22:10 | NUR ---
PT HAD LARGE LOOSE BM, CLEANED PER STAFF, PT STARTED BREATHING ERRATICALLY AND GROANING WITH BREATHS, NOTED SIEZURE ACTIVITY, RIGHT SIDE TWITCHING WITH HEAD TWITCHING TO RIGHT AND EYELIDS TWITCHING, PAGED DR POLO, ORDERS ECIEVED FOR ATIVAN AND KEPPRA, ABGS DONE
--- NOTE | 2020-02-06 22:35 | NUR ---
ABG'S CALLED TO DR POLO, PT CONT TO SHOW SIEZURE ACTIVITY, GIVEN ATIVAN PER ORDERS
--- NOTE | 2020-02-06 23:00 | NUR ---
NO SIEZURE ACTIVITY NOTED, CALLED UPDATE TO PT'S DAUGHTER NORI
[2020-02-07] VITALS (24 sets, daily range): BP systolic 108–166; BP diastolic 50–87
[2020-02-07 05:20] LABS: BASOPHILS 0.2 % (0-2); EOSINOPHILS 0 % (0-7); HEMATOCRIT 44.1 % (36.0-48.0); HEMOGLOBIN 14.7 g/dL (12-16); IMMATURE GRANULOCYTES 1.7 % (0-5); LYMPHOCYTES 9.8 % (15-50); MCH 27.4 pg (26.0-34.0); MCHC 33.3 g/dL (31.0-37.0); MCV 82.1 fL (80.0-100.0); MEAN PLATELET VOLUME 10.9 fL (7.4-10.4); MONOCYTES 9.1 % (2-11); NEUTROPHILS 79.2 % (40-80); PLATELET COUNT 119 10x3/uL (130-400); RBC 5.37 10x6/uL (4.00-5.40); RDW 16.5 % (11.5-14.5); WBC 12.6 10x3/uL (4.8-10.8)
[2020-02-07 05:51] LABS: ANION GAP 11.3 mmol/L (8-16); CARBON DIOXIDE 25.5 mmol/L (21.0-32.0); PHOSPHOROUS 2.2 mg/dL (2.5-4.9); POTASSIUM - SERUM 4.8 mmol/L (3.5-5.1); URIC ACID 3.7 mg/dL (2.6-7.2)
--- NOTE | 2020-02-07 07:10 | NUR ---
REPORT RECEIVED FROM METHOD CONSULTANT AND PATIENT CARE ASSUMED. PATIENT LAYING IN BED ON BACK WITH EYES CLOSED AND BREATHING EVENLY. RECEIVED ON REPORT THAT ART LINE IN NOT FUCNTIONING PROPERLY AND PATIENT MAY NEED NEW ART LINE. BP CUFF IN PLACE AND VSS. WILL CONTINUE WITH PLAN OF CAERE. SR UP X 2 BED IN LOW POSTION AND CALL LIGHT IN REACH.
--- NOTE | 2020-02-07 09:00 | NUR ---
ASSESSMENT COMPLETED. PATIENT REMAINS LETHARGIC. AROUSE TO DEEP STIMULI. VSS. WILL CONTINUE TO MONITOR. SR UP X 2 BED IN LOW POSITION AND CALL LIGHT IN REACH.
--- NOTE | 2020-02-07 10:30 | NUR ---
DR POLO ON UNIT. NEW ORDERS RECEIVED. CONSULTED DR OBRIEN. NEW ORDERS RECEIVED FOR KEPPRA 1000 MG BID, MRI BRAIN W/WO CONTRAST, EEG. ORDERS PLACED.
--- NOTE | 2020-02-07 11:00 | NUR ---
RE-ASSESSMENT COMPLETED. VSS.WILL CONTINUE TO MONITOR. SR UP X2 BED IN LOW POSITON AND CALL LIGHT IN REACH.
--- NOTE | 2020-02-07 12:33 | NUR ---
Nutrition follow-up: Pt unresponsive today; new Possible seizure; ativan, keppra given ProcalAmine PPN infusing @ 75 ml/hr Labs reviewed Wt: 217# +BM Recommend NGT placement and Pulmocare started @ 20 ml/hr with increase to goal rate of 50 ml/hr if physicians agree and medically feasible. Pt not meeting needs with ProcalAmine and TPN not appropriate at this time. RDN following.
--- NOTE | 2020-02-07 13:35 | NUR ---
CALL FROM LEDY IN [facility] FOR CLARIFICATION ON MRI VS MRA ORDER, STATES THAT SHE WILL CALL DR. OBRIEN
--- NOTE | 2020-02-07 14:15 | NUR ---
DR MELENDREZ ON UNIT. NO NEW ORDERS RECEIVED. WILL CONITNUE TO MONITOR. SR UP X 2 BED IN LOW POSITION AND CALL LIGHT IN REACH.
--- NOTE | 2020-02-07 15:00 | NUR ---
RE-ASSESSMNT COMPLETED. VSS. PATIENT UNCHANGED. WILL CONTINUE TO MONITOR. SR UPX 2 BED IN LOW POSITION AND CALL LIGHT IN REACH,
--- NOTE | 2020-02-07 16:10 | NUR ---
PATIENT IS STABLE AND UNCHANGED. AROUSES TO DEEP STIMULI. VSS. AWAITING MRI.
--- NOTE | 2020-02-07 18:00 | NUR ---
PATIENT IS STABLE AND VSS. PATIENT TO MRI VIA STRETCHER ACCOMPANIED BY MRI STAFF.
--- NOTE | 2020-02-07 18:50 | NUR ---
PATIENT RETURNED FROM MRI VIA STRETCHER ACCOMPANIED BY MRI STAFF. PATIENT TRANSFERRED TO BED WITHOUT DIFFICULTY. PATIENT HAS LIQUID STOOL. PATIENT CLEANED , CLEAN LINENS AND REPOSITIONED FOR COMFORT. SR UP X 2 BED IN LWO POSITION AND CALL LIGHT IN REACH.
--- NOTE | 2020-02-07 19:30 | NUR ---
PT LETHARGIC, WILL NOT OPEN EYES TO STIMULI, ONLY MOANS WITH STIMULI, O2 @ 7L VIA N/C, RIGHT IJ CVL INTACT WITH IVF'S INFUSING, GENERALIZED EDEMA NOTED, ALBERT PATENT TO BSD, VITALS STABLE
--- NOTE | 2020-02-07 19:30 | NUR ---
PT SEDATED, ETT PATENT TO VENT, LUNGS CLEAR, LEFT TLSC INTACT WITH IVF'S INFUSING, OGT IN PLACE WITH NEPRO @ 35 CC/HR, ALBERT PATENT TO BSD, LEFT RADIAL A-LINE INTACT BUT CAN NOT GET AN ACCURATE B/P, CUFF PRESSURE STABLE, GENERALIZED EDEMA NOTED, WILL CONT TO MONITOR
--- NOTE | 2020-02-07 20:50 | NUR ---
CALLED UPDATE TO FAMILY, FAMILY ASKING ABOUT COVID PLASMA AND WHEN AVAILABLE, TOLD THEM WE WERE WAITING ON FDA APPROVAL, THEY SPOKE WITH CHARGE NURSE WHO CONTACTED THE LAB ABOUT IT, LAB SENT INFO TO FDA, JUST WAITING FOR APPROVAL NUMBER
--- NOTE | 2020-02-07 21:00 | NUR ---
UPDATE CALLED TO FAMILY, PT PROGNOSIS POOR, WILL UPDATE IN AM PER FAMILY REQUEST
[2020-02-08] VITALS (23 sets, daily range): BP systolic 90–166; BP diastolic 44–93
[2020-02-08 05:04] LABS: BASOPHILS 0.1 % (0-2); EOSINOPHILS 0 % (0-7); HEMATOCRIT 42.4 % (36.0-48.0); HEMOGLOBIN 14.1 g/dL (12-16); IMMATURE GRANULOCYTES 0.9 % (0-5); LYMPHOCYTES 7.6 % (15-50); MCH 27.3 pg (26.0-34.0); MCHC 33.3 g/dL (31.0-37.0); MEAN PLATELET VOLUME 10.6 fL (7.4-10.4); NEUTROPHILS 83.4 % (40-80); RBC 5.17 10x6/uL (4.00-5.40); RDW 16.2 % (11.5-14.5); WBC 11.6 10x3/uL (4.8-10.8)
[2020-02-08 05:13] LABS: ANION GAP 10.2 mmol/L (8-16); CALCIUM 10.5 mg/dL (8.5-10.1); CARBON DIOXIDE 25.5 mmol/L (21.0-32.0); CREATININE - SERUM 0.8 mg/dL (0.6-1.3); PHOSPHOROUS 2.3 mg/dL (2.5-4.9); POTASSIUM - SERUM 4.7 mmol/L (3.5-5.1)
[2020-02-08 05:30] LABS: PLATELET COUNT 93 10x3/uL (130-400); PLATELET ESTIMATE DECREASED
--- NOTE | 2020-02-08 07:10 | NUR ---
REPORT RECEIEVED FROM HISTORY TEACHER AND PATIENT CARE ASSUMED. PATIENT LAYING IN BED ON LEFT SIDE WITH EYES CLOSED AND WITH NC AT 7L HF IN MOUTH. PATIENT IS A MOUTH BREATHER. PATIENT MOANS TO DEEP STIMULI. VSS. PER OFF GOING NURSE, FAMILY IS CONSIDERING HOSPICE . IV INFUSING TO RTIJ NS AT VO, PHOSPOROUS AND PROCAL AT 75. ALBERT CATH IN PLACE AND DRAINING CLEAR YELLOW URINE. WILL CONTINUE TO MONITOR. SR UP X 2 BED IN LOW POSITION AND CALL LIGHT IN REACH.
--- NOTE | 2020-02-08 07:30 | NUR ---
DR MCNALLY ON UNIT. NO NEW ORDERS RECEIVED.
--- NOTE | 2020-02-08 09:00 | NUR ---
ASSESSMENT COMPLETED. SEE FORM FOR DETAILS. VSS. DR POLO ON UNIT. NO NEW ORDERS RECEIVED. DR POLO VISITED WITH PATIENT SLIM JULIO IN PERSON. DECISION WAS MADE TO CONTINUE WITH FULL CODE, DTR AGREED TO VENT IF NEEDED. AWAITNG DR OBRIEN CONSULT VISIT TOMORROW AND DECISIONS TO MAKE ANY CHANGES AFTER DR OBRIEN CONSULT. MRI DID SHOW A CVA. PATIENT REPOSITIONED FOR COMFORT. WILL CONTINUE TO MONITOR. SR UP X 2 BED IN LOW POSITION AND CALL LIGHT IN REACH.
--- NOTE | 2020-02-08 11:00 | NUR ---
RE-ASSESMENT COMPLETED. VSS. PATIENT BATHED AND COMPLETE LINEN CHANGE. PATIENT REPOSITONED TO BACK FOR COMFORT. WILL CONTINUE TO MONITOR. SR UP X2 BED IN LOW POSITION AND CALL LIGHT IN REACH.
--- NOTE | 2020-02-08 12:30 | NUR ---
DR MELENDREZ ON UNIT. NO NEW ORDERS RECEIVED. CALLED DTR TO UPDATE THAT DR MELENDREZ CONCURS WITH DR POLO PLAN . DTR VERBALIZED UNDERSTANDING AND HAD NO QUESTIONS.
[2020-02-08 14:40] LABS: C-REACTIVE PROTEIN < 0.2 mg/dL (0.0-0.9); FERRITIN 532 ng/mL (3-244); LDH 234 U/L (81-234)
--- NOTE | 2020-02-08 14:45 | NUR ---
PATIENT REPOSITONED TO RT SIDE. VSS. RE-ASSESMENT COMPLETED. WILL CONTINUE TO MONTIOR.
--- NOTE | 2020-02-08 17:15 | NUR ---
RE-POSITIONED PATIENT TO LT SIDE. VSS. WILL CONTINUE TO MONITOR. SR UPX 2 BED IN LOW POSITION AND CALL LIGHT IN REACH.
--- NOTE | 2020-02-08 19:00 | NUR ---
REPORT RECEIVED. PT RESTING IN BED, AROUSES TO DEEP STIMULI. INCOMPREHENSIBLE SOUNDS NOTED. ASSESSMENT COMPLETED, SEE FLOWSHEET. RT IJ CVL INFUSING, SEE IV FLOWSHEET. WILL CONTINUE TO MONITOR.
--- NOTE | 2020-02-08 21:57 | NUR ---
ATTEMPTED TO CALL PT FAMILY MEMBER FOR UPDATE, NO RESPONSE.
--- NOTE | 2020-02-08 22:06 | NUR ---
PT FAMILY CALLED, UPDATED ON PATIENT STATUS.
--- NOTE | 2020-02-08 23:00 | NUR ---
REASSESSMENT COMPLETED, SEE FLOWSHEET.
[2020-02-09] VITALS (24 sets, daily range): BP systolic 106–165; BP diastolic 49–99; Ht 162.6 cm; Wt 92.0 kg
--- NOTE | 2020-02-09 01:00 | NUR ---
PT RESTING IN BED, AROUSES TO DEEP STIMULI. INCOMPREHENSIBLE GRUNTS NOTED.
--- NOTE | 2020-02-09 03:00 | NUR ---
REASSESSMENT COMPLETED, SEE FLOWSHEET.
--- NOTE | 2020-02-09 05:00 | NUR ---
LABS DRAWN AT THIS TIME. NO ACUTE DISTRESS NOTED. NO CHANGES IN PATIENT STATUS.
[2020-02-09 06:57] LABS: ANION GAP 9.8 mmol/L (8-16); CALCIUM 10.3 mg/dL (8.5-10.1); CARBON DIOXIDE 25.4 mmol/L (21.0-32.0); CREATININE - SERUM 0.8 mg/dL (0.6-1.3); MAGNESIUM - SERUM 1.8 mg/dL (1.8-2.4); PHOSPHOROUS 2.2 mg/dL (2.5-4.9); THYROID STIMULATING HORMONE 25.15 uIU/mL (0.36-3.74)
[2020-02-09 06:58] LABS: POTASSIUM - SERUM 5.2 mmol/L (3.5-5.1)
[2020-02-09 07:00] LABS: BASOPHILS 0.1 % (0-2); EOSINOPHILS 0 % (0-7); HEMATOCRIT 42.3 % (36.0-48.0); IMMATURE GRANULOCYTES 0.6 % (0-5); LYMPHOCYTES 5.8 % (15-50); MCH 27.2 pg (26.0-34.0); MCHC 33.1 g/dL (31.0-37.0); MCV 82.1 fL (80.0-100.0); MONOCYTES 7.9 % (2-11); NEUTROPHILS 85.6 % (40-80); PLATELET COUNT 74 10x3/uL (130-400); RBC 5.15 10x6/uL (4.00-5.40); WBC 11.9 10x3/uL (4.8-10.8)
--- NOTE | 2020-02-09 07:10 | NUR ---
REPORT RECEVIED FROM PEDIATRIC ANESTHESIOLOGIST AND PATIENT CARE ASSUMED. PATIENT LAYING IN BED ON BACK WTIH HOB ELEVATED 30 DEGREES WITH EYES CLOSED AND BREATHING EVENLY. NC @7L HF INFUSING IN MOUTH. PATIENT IS MOUTH BREATHER. BP 14/6 02 95% R17 HR 50. IV INFUSING TO RTIJ NS @ KVO PROCAL @ 75. WILL CONTINUE WITH PLAN OF CARE. SR UP X 2 BED IN LOW POSITION AND CALL LIGHT IN REACH.
[2020-02-09 07:26] LABS: PLATELET ESTIMATE DECREASED
--- NOTE | 2020-02-09 09:00 | NUR ---
ASSESMENT COMPLETED. SEE SHEET. PATIENT IS MORE ALERT. ATTEMPTS TO SPEAK WITH GARBLED SPEECH. GAVE PATIENT LOVENOX SHOT IN ABDOMEN AND PATIENT STATED CLEARLY "OH SHIT." PATIENT REPOSITIONED FOR COMFORT. WILL CONTINUE TO MONITOR. SR UP X 2 BED IN LOW POSITION AND CALL LIGHT IN REACH.
--- NOTE | 2020-02-09 11:00 | NUR ---
RE-ASSESMENT COMPLETED. VSS. WILL CONTINUE TO MONITOR. SR UPX 2 BED IN LOW POSITION AND CALL LIGHT IN REACH.
--- NOTE | 2020-02-09 11:03 | NUR ---
Nutrition follow-up: Pt unresponsive. ProcalAmine PPN @ 75 ml/hr Labs reviewed Recommend NGT placement and tube feeding of Osmolite 1.2 promise started @ 25 ml/hr with increase to goal rate of 50 ml/hr with 25 ml H2O flush per hour. RDN following.
--- NOTE | 2020-02-09 15:00 | NUR ---
REASSEMENT COMPLETED. PATIENT IS STABLE AND VSS. REPOSOITIONED FOR COMFORT.
--- NOTE | 2020-02-09 17:30 | NUR ---
PATIENT REPOSITONED FOR COMFORT. PATIENT IS STABLE AND VSS. WILL CONTINUE TO MONITOR. SR UP X 2 BED IN LOW POSITON AND CALL LIGHT IN REACH.
--- NOTE | 2020-02-09 19:30 | NUR ---
SHIFT ASSESSMENT COMPLETED SEE FLOWSHEET NG INSERTION ATTEMPTED 5X TIMES TOTAL, 2 RN'S ATTEMPTED. USE OF LIDOCAINE CREAM ALSO. PT UNABLE TO FOLLOW DIRECTIONS AND FIGHTING. UNABLE TO PLACE NG TUBE AT THIS TIME. VSS, WILL CONTINUE TO MONITOR
--- NOTE | 2020-02-09 20:34 | NUR ---
PT RECEIVED HS MEDICATIONS AT THIS TIME. ATTEMPT X2 TO DROP NG TUBE UNSUCCESSFUL. PT NOT TOLERATING WILL CONTINUE TO MONITOR
--- NOTE | 2020-02-09 20:40 | NUR ---
CALLED PERSON TO NOTIFY FROM [employer], NO ANSWER
--- NOTE | 2020-02-09 20:53 | NUR ---
CALLED NEXT OF KIN FROM [employer], NUMBER DISCONNECTED, CALLED POINT OF AGRICULTURAL ECONOMIST i WAS GIVEN IN ORAL REPORT, NO ANSWER.
--- NOTE | 2020-02-09 20:55 | NUR ---
ATTEMPTED UPDATE CONTACT TO PERSON TO NOTIFY FROM [employer], NO ANSWER
--- NOTE | 2020-02-09 21:15 | NUR ---
PT DAUGHTER RETURNED CALL, LET HER KNOW WE WERE JUST CALLING TO UPDATE PER POLICY, ALL QUESTIONS ANSWERED UPDATE
--- NOTE | 2020-02-09 21:45 | NUR ---
SHIFT ASSESSMENT COMPLETED, HS MEDICATIONS RECEIVED, URINE COLLECTED PER POLICY AND DELIVERED TO LAB. ORAL CARE COMPLETED AT THIS TIME. PATIENT REPOSITIONED FOR COMFORT. VSS CPOC
--- NOTE | 2020-02-09 21:45 | NUR ---
SPOKE WITH DR POLO AT THIS TIME, NO NEW ORDERS RECEIVED
--- NOTE | 2020-02-09 22:30 | NUR ---
REASSESSMENT COMPLETED SEE FLOWSHEET, FULL LINEN CHANGE AND CHG BATH COMPLETED AT THIS TIME.
[2020-02-10] VITALS (24 sets, daily range): BP systolic 83–142; BP diastolic 45–79
--- NOTE | 2020-02-10 02:58 | NUR ---
REASSESSMENT COMPLETED, PT COLD TO TOUCH, SLIGHTLY HYPOTHERMIC, COVERED WITH WARM BLANKET X 2 WILL CONTINUE TO CLOSELY MONITOR
[2020-02-10 06:06] LABS: BASOPHILS 0 % (0-2); EOSINOPHILS 0.1 % (0-7); HEMATOCRIT 43.6 % (36.0-48.0); HEMOGLOBIN 14.5 g/dL (12-16); IMMATURE GRANULOCYTES 0.8 % (0-5); LYMPHOCYTES 8.4 % (15-50); MCH 27.4 pg (26.0-34.0); MCHC 33.3 g/dL (31.0-37.0); MCV 82.3 fL (80.0-100.0); MONOCYTES 8.3 % (2-11); NEUTROPHILS 82.4 % (40-80); PLATELET COUNT 79 10x3/uL (130-400)
[2020-02-10 06:08] LABS: WBC 15.6 10x3/uL (4.8-10.8)
[2020-02-10 06:26] LABS: ANION GAP 9.4 mmol/L (8-16); CALCIUM 10.7 mg/dL (8.5-10.1); CARBON DIOXIDE 28.7 mmol/L (21.0-32.0); CREATININE - SERUM 0.8 mg/dL (0.6-1.3); PHOSPHOROUS 2.2 mg/dL (2.5-4.9)
[2020-02-10 06:27] LABS: POTASSIUM - SERUM 4.1 mmol/L (3.5-5.1)
[2020-02-10 13:27] LABS: ALBUMIN 2.4 g/dL (3.4-5.0); BILIRUBIN - DIRECT 0.4 mg/dL (0.00-0.30); BILIRUBIN - INDIRECT 0.59 mg/dL (0.00-1.00); BILIRUBIN - TOTAL 0.99 mg/dL (0.2-1.3); PROTEIN - SERUM 4.8 g/dL (6.4-8.2)
--- NOTE | 2020-02-10 15:12 | NUR ---
0700 REPORT RECIEVED AND CARE ASSUMED OF PATIENT.. SEE FLOW SHEET FOR SHIFT ASSESMENT FIDNINGS.. 0900 PT IS AROUSABLE WITH NOXIOUS STIMULI REPOSITIONED AND PT SWEARING 1145 DR POLO IN TO SEE PATIENT.. UPDATE GUVEN [address] DR STATED THAT A PEG TUBE FOR FEEDING IS NEEDED 1215 DR MELENDREZ IN TO SEE PATIENT UPDATE IS GIVEN.. 1330 NORI PATIENTS DAUGHTER CALLED FOR CONSENT OF PEG..OK PER NORI 1500 WITHOUT CHANGES AT THIS TIME...
--- NOTE | 2020-02-10 18:47 | NUR ---
1633 REMDISAPHIRE IV HUNG.. I AND O DONE.. 1730 IV THRU INFUSING
--- NOTE | 2020-02-10 19:15 | NUR ---
SHIFT ASSESSMENT COMPLETED SEE FLOWSHEET VSS CPOC
--- NOTE | 2020-02-10 23:26 | NUR ---
REASSESSMENT COMPLETED, HS MEDICATIONS RECEIVED. VSS CPOC
[2020-02-11] VITALS (24 sets, daily range): BP systolic 74–125; BP diastolic 36–82
--- NOTE | 2020-02-11 02:15 | NUR ---
PT O2 SATURATION DROPPED TO 87% ROUSED TO VOICE, INSTRUCTED PT TO TAKE DEEP BREATHS THROUGH NOSE, PT STATED "LEAVE ME ALONE, SHIT" 02 SATURATION INCREASE TO 91% WILL CONTINUE TO MONITOR
--- NOTE | 2020-02-11 05:26 | NUR ---
PATIENT RESTING COMFORTABLY, VSS CPOC
--- NOTE | 2020-02-11 05:37 | NUR ---
LAB CALLED AND NOTIFIED THIS NURSE LAB DRAW HEMOLYZED. ATTEMPTED STICK LAB DRAW X2 - PATIENT FIGHTING UNABLE TO SUCCESSFULLY DRAW BLOOD AT THIS TIME. VSS CPOC
[2020-02-11 13:27] LABS: HEMATOCRIT 41.9 % (36.0-48.0); HEMOGLOBIN 13.7 g/dL (12-16); IMMATURE GRANULOCYTES 1.2 % (0-5); MCH 27.3 pg (26.0-34.0); MCHC 32.7 g/dL (31.0-37.0); MCV 83.5 fL (80.0-100.0); PLATELET COUNT 80 10x3/uL (130-400); RBC 5.02 10x6/uL (4.00-5.40); RDW 16.6 % (11.5-14.5); WBC 13.2 10x3/uL (4.8-10.8)
[2020-02-11 13:40] LABS: CALC OSMOLALITY 269 mosm/kg (275-300); CALCIUM 9.7 mg/dL (8.5-10.1); CARBON DIOXIDE 28.3 mmol/L (21.0-32.0); CHLORIDE - SERUM 102 mmol/L (98-107); CREATININE - SERUM 0.7 mg/dL (0.6-1.3); GLUCOSE 114 mg/dL (74-106); PHOSPHOROUS 1.7 mg/dL (2.5-4.9); SODIUM 134 mmol/L (136-145); eGFR NON AFRICAN AMERICAN 87 mL/min (90-120)
[2020-02-11 13:47] LABS: UREA NITROGEN 16 mg/dL (7-18)
[2020-02-11 13:48] LABS: LYMPHOCYTES 6 % (15-50); MONOCYTES 2 % (2-11); NEUTROPHILS 90 % (40-80); PLATELET ESTIMATE DECREASED; POIKILOCYTOSIS OCC; TEAR DROP CELLS OCC
--- NOTE | 2020-02-11 14:05 | NUR ---
0700 REPORT RECIEVED AND CARE ASSUMED OF PATIENT.. SEE FLOW SHEET FOR SHIFT ASSESMENT.. 0900 PT IS WITHOUT CHANGE.. UNABLE TO DRAW BLOOD FOR AM LAB FROM CVL.. PERIFERAL STICK NEEDED FROM LAB 1000 DR SHARP IN TO SEE PATIENT..ORDERS RECIEVED.. 1200 DR LOVE IN TO SEE PATIENT 1315 MULTIPLE PREVIOUS ATTEMPTS TO OBTAIN BLOOD FOR AM LAB .. FINALLY OPBTAINED VIA PERIFERAL STICK BY LEAD TECHNICAL ARCHITECT
--- NOTE | 2020-02-11 16:23 | NUR ---
1400 CHG BATH WITH LINEN CHANGE DONE.. PT AWAKE AND CUSSING SHE WAS BATHED.. WITHOUT INSULIN COVER 1530 I AND O DONE
--- NOTE | 2020-02-11 17:54 | NUR ---
1630 UNABLE TO OBTAIN BLOOD GLUCOSE
--- NOTE | 2020-02-11 18:03 | NUR ---
LATE ENTRY 1800 SPOKE WITH BUTT WELDER RE GLUCOMETERS
--- NOTE | 2020-02-11 19:15 | NUR ---
BEDSIDE SHIFT REPORT COMPLETED SHIFT ASSESSMENT COMPLETED SEE FLOWSHEET, SINUS GUSTAVO - VSS CPOC
--- NOTE | 2020-02-11 22:47 | NUR ---
REASSESSMENT COMPLETED SEE FLOWSHEET
[2020-02-12] VITALS (24 sets, daily range): BP systolic 96–135; BP diastolic 44–78
--- NOTE | 2020-02-12 03:24 | NUR ---
REASSESSMENT COMPLETED SEE FLOWSHEET - PT O2 SATURATION 88% - UPON ENTERING THE ROOM PATIENT ROUSES TO VOICE, NASAL CANNULA FOUND IN HAND, PLACED NASAL CANNULA BACK ON PATIENT OXYGEN SATURATION INCREASE TO 92% ON 8L HIGH FLOW, PT ATTEMPTING TO REMOVE NASAL CANNULA. VSS WITH NOTED BRADYCARDIA. WILL CONTINUE TO MONITOR CLOSELY.
--- NOTE | 2020-02-12 05:59 | NUR ---
PT RESTING COMFORTABLY, NO ACUTE CHANGES VSS CPOC
[2020-02-12 06:16] LABS: BILIRUBIN - DIRECT 0.14 mg/dL (0.00-0.30); BILIRUBIN - INDIRECT 0.59 mg/dL (0.00-1.00); BILIRUBIN - TOTAL 0.73 mg/dL (0.2-1.3); PROTEIN - SERUM 4.5 g/dL (6.4-8.2)
[2020-02-12 06:40] LABS: HEMATOCRIT 40.5 % (36.0-48.0); HEMOGLOBIN 13.3 g/dL (12-16); MCH 27.4 pg (26.0-34.0); MCHC 32.8 g/dL (31.0-37.0); MCV 83.3 fL (80.0-100.0); PLATELET COUNT 82 10x3/uL (130-400); RBC 4.86 10x6/uL (4.00-5.40); RDW 16.7 % (11.5-14.5)
[2020-02-12 07:13] LABS: LYMPHOCYTES 6 % (15-50); MONOCYTES 1 % (2-11); NEUTROPHILS 91 % (40-80); PLATELET ESTIMATE DECREASED
[2020-02-12 07:14] LABS: POIKILOCYTOSIS OCC
--- NOTE | 2020-02-12 10:48 | NUR ---
0700 REPORT RECEIVED AWAKE ALERT WEARING BPAP ASSESSMENT COMPLETE
--- NOTE | 2020-02-12 10:49 | NUR ---
0900 TRIED SWITCHING OVER TO A NON REBREATHER MASK QUICKLY THE PATIENTS 02 SAT DROPPED INTO THE 60'S PLACED PT BACK ON BPAP
--- NOTE | 2020-02-12 13:22 | NUR ---
Nutrition follow-up: PEG tube to be placed today. ProcalAmine PPN @ 50 ml/hr Labs reviewed Wt: 218# Recommend starting Osmolite 1.0 promise @ 25 ml/hr with graudal increase to goal rate of 75 ml/hr with 150 ml H2O flush q [address]N following.
--- NOTE | 2020-02-12 19:30 | NUR ---
REPORT RECIEVED, SHIFT ASSESSMENT COMPLETE, PT IS CONFUSED LYING IN BED, ON 7L HFNC WITH 95% O2 SAT. ALL PPP, VSS, CALL LIGHT IN REACH
--- NOTE | 2020-02-12 21:15 | NUR ---
NO NEEDS NOTED AT THIS TIME, VSS
--- NOTE | 2020-02-12 23:20 | NUR ---
REASSESSMENT COMPLETE, NO CHANGES NOTED, WILL CON'T TO MONITOR
[2020-02-13] VITALS (24 sets, daily range): BP systolic 87–129; BP diastolic 37–88
--- NOTE | 2020-02-13 01:15 | NUR ---
REPOSITIONED FOR COMFORT, ORAL CARE PROVIDED
--- NOTE | 2020-02-13 03:10 | NUR ---
REASSESSMENT COMPLETE, NO CHANGES NOTED, PT RESTING COMFORTABLY AT THIS TIME, WILL CON'T TO MONITOR
[2020-02-13 04:49] LABS: BASOPHILS 0.1 % (0-2); EOSINOPHILS 0.1 % (0-7); HEMATOCRIT 40.5 % (36.0-48.0); HEMOGLOBIN 13.2 g/dL (12-16); IMMATURE GRANULOCYTES 1.6 % (0-5); LYMPHOCYTES 10.2 % (15-50); MCH 27.2 pg (26.0-34.0); MCHC 32.6 g/dL (31.0-37.0); MCV 83.3 fL (80.0-100.0); MONOCYTES 6.6 % (2-11); NEUTROPHILS 81.4 % (40-80); RBC 4.86 10x6/uL (4.00-5.40); RDW 16.8 % (11.5-14.5); WBC 14.4 10x3/uL (4.8-10.8)
[2020-02-13 04:50] LABS: PLATELET COUNT 114 10x3/uL (130-400)
--- NOTE | 2020-02-13 05:04 | NUR ---
COMPLETE BATH AND LINEN CHANGE, PT TOLERATED WELL
[2020-02-13 05:11] LABS: ALBUMIN 2.3 g/dL (3.4-5.0); ANION GAP 7.5 mmol/L (8-16); BILIRUBIN - DIRECT 0.22 mg/dL (0.00-0.30); BILIRUBIN - INDIRECT 0.49 mg/dL (0.00-1.00); BILIRUBIN - TOTAL 0.71 mg/dL (0.2-1.3); CALCIUM 9.8 mg/dL (8.5-10.1); CARBON DIOXIDE 27.4 mmol/L (21.0-32.0); CREATININE - SERUM 0.8 mg/dL (0.6-1.3); MAGNESIUM - SERUM 1.8 mg/dL (1.8-2.4); PHOSPHOROUS 1.6 mg/dL (2.5-4.9); POTASSIUM - SERUM 3.9 mmol/L (3.5-5.1); PROTEIN - SERUM 4.8 g/dL (6.4-8.2)
--- NOTE | 2020-02-13 07:34 | NUR ---
Nutrition consult for TPN: Received order from Dr. Sales to start TPN. Chart reviewed Labs reviewed TPN ordered to start @ 40 ml/hr with 20% 250 ml intralipids q 48 hours. ProcalAmine to discontinue when TPN started Thank you for the consult. RDN following.
--- NOTE | 2020-02-13 21:17 | NUR ---
NO NEEDS NOTED AT THIS TIME, WILL CON'T TO MONITOR
--- NOTE | 2020-02-13 23:10 | NUR ---
REASSESSMENT COMPLETE, NO CHANGES NOTED, PT REPOSITIONED FOR COMFORT,
[2020-02-14] VITALS (24 sets, daily range): BP systolic 94–124; BP diastolic 43–91
--- NOTE | 2020-02-14 01:00 | NUR ---
REPOSITIONED FOR COMFORT,
--- NOTE | 2020-02-14 03:13 | NUR ---
REASSESSMENT COMPLETE, NO CHANGES NOTED, WILL CON'T TO MONITOR
[2020-02-14 06:33] LABS: ALBUMIN 2.1 g/dL (3.4-5.0); ALKALINE PHOSPHATASE 86 U/L (30-120); ALT (SGPT) 27 U/L (10-68); BILIRUBIN - DIRECT 0.16 mg/dL (0.00-0.30); BILIRUBIN - INDIRECT 0.31 mg/dL (0.00-1.00); BILIRUBIN - TOTAL 0.47 mg/dL (0.2-1.3); CALC OSMOLALITY 277 mosm/kg (275-300); CALCIUM 9.3 mg/dL (8.5-10.1); CARBON DIOXIDE 28.1 mmol/L (21.0-32.0); CHLORIDE - SERUM 107 mmol/L (98-107); CREATININE - SERUM 0.7 mg/dL (0.6-1.3); GLUCOSE 143 mg/dL (74-106); MAGNESIUM - SERUM 1.8 mg/dL (1.8-2.4); PROTEIN - SERUM 4.3 g/dL (6.4-8.2); SODIUM 138 mmol/L (136-145); UREA NITROGEN 13 mg/dL (7-18); eGFR NON AFRICAN AMERICAN 87 mL/min (90-120)
[2020-02-14 06:34] LABS: POTASSIUM - SERUM 3.3 mmol/L (3.5-5.1)
--- NOTE | 2020-02-14 07:15 | NUR ---
REPORT RECEIVED FROM CAMERA TUNING ENGINEER AND PATIENT CARE ASSUMED. PATIENT LAYING IN BED ON BACK WITH EYES CLOSED AND BREATHING EVENLY. NC IN PLACE 02 AT 4L. BP 114/85 O2SAT 94% HR 50 RR 20. REPOSITONED PATIENT FOR COMFORT. WILL CONTINUE WITH PLAN OF CARE. SR UPX 2 BED IN LOW POSITON AND CALL LIGHT IN REACH.
--- NOTE | 2020-02-14 09:00 | NUR ---
ASSESSMENT COMPLETED. REPOSTIOINED FOR COMFORT AND ORAL CARE PROVIDED. WILL CONTINUE TO MONITOR. SR UP X 2 BED IN LOW POSITION AND CALL LIGHT IN REACH.
[2020-02-14 10:11] LABS: BASOPHILS 0.1 % (0-2); EOSINOPHILS 1.2 % (0-7); HEMATOCRIT 39.5 % (36.0-48.0); HEMOGLOBIN 12.8 g/dL (12-16); IMMATURE GRANULOCYTES 1.9 % (0-5); LYMPHOCYTES 13.4 % (15-50); MCH 27.2 pg (26.0-34.0); MCHC 32.4 g/dL (31.0-37.0); MCV 83.9 fL (80.0-100.0); MEAN PLATELET VOLUME 11.3 fL (7.4-10.4); MONOCYTES 7.6 % (2-11); NEUTROPHILS 75.8 % (40-80); PLATELET COUNT 123 10x3/uL (130-400); RBC 4.71 10x6/uL (4.00-5.40); RDW 17.1 % (11.5-14.5)
[2020-02-14 10:15] LABS: WBC 9.3 10x3/uL (4.8-10.8)
--- NOTE | 2020-02-14 10:18 | NUR ---
Nutrition Follow-up: TPN @ 40; lipids q 48h. Labs reviewed. Electrolytes adjusted. Possible PEG pending family discussion. Wt: 200# (02/13) Labs noted: Na 138, K+ 3.3, Cl 107, CO2 28.1, Glu 143, Ca 9.3, Mg 1.8, PO4 2.1 Meds reviewed -RD following.
--- NOTE | 2020-02-14 11:00 | NUR ---
RE-ASSESSMENT COMPLETED. NO CHANGES. REPOSITONED FOR COMFORT.
--- NOTE | 2020-02-14 13:48 | NUR ---
ORAL CARE DONE. PATIENT REPOSITONED FOR COMFORT. PATIENT AROUSES EASILY TO VOICE AND STIMULUS. GARBLED SPEECH. VSS. WILL CONTINUE TO MONITOR. SR UP X 2 BED IN LOW POSITION AND CALL LIGHT IN REACH.
--- NOTE | 2020-02-14 15:00 | NUR ---
ORAL CARE PERFORMED AND PATIENT REPOSITIONED FOR COMFORT. VSS. PATIEITN UNCHANGED.
--- NOTE | 2020-02-14 19:30 | NUR ---
REPORT RECIEVED, SHIFT ASSESSMENT COMPLETE, PT IS CONFUSED LYING IN BED, ON 3L HFNC WITH 95% O2 SAT. ALL PPP, VSS, WILL CON'T TO MONITOR
--- NOTE | 2020-02-14 21:05 | NUR ---
UPDATE GIVEN TO FAMILY AT THIS TIME, PASSWORD GIVEN
--- NOTE | 2020-02-14 23:16 | NUR ---
REASSESSMENT COMPLETE, NO CHANGES NOTED, WILL CON'T TO MONITOR
[2020-02-15] VITALS (24 sets, daily range): BP systolic 80–132; BP diastolic 36–96
--- NOTE | 2020-02-15 01:15 | NUR ---
NO NEEDS NOTED AT THIS TIME, WILL CON'T TO MONITOR
--- NOTE | 2020-02-15 03:19 | NUR ---
REASSESSMENT COMPLETE, NO CHANGES NOTED, WILL CON'T TO MONITOR
[2020-02-15 04:44] LABS: BASOPHILS 0.1 % (0-2); EOSINOPHILS 0.9 % (0-7); HEMATOCRIT 39.2 % (36.0-48.0); HEMOGLOBIN 12.9 g/dL (12-16); IMMATURE GRANULOCYTES 2.9 % (0-5); MCH 27.3 pg (26.0-34.0); MCHC 32.9 g/dL (31.0-37.0); MCV 83.1 fL (80.0-100.0); MEAN PLATELET VOLUME 10.3 fL (7.4-10.4); MONOCYTES 8.3 % (2-11); NEUTROPHILS 73.8 % (40-80); PLATELET COUNT 119 10x3/uL (130-400); RBC 4.72 10x6/uL (4.00-5.40); RDW 17.4 % (11.5-14.5); WBC 9.5 10x3/uL (4.8-10.8)
[2020-02-15 04:53] LABS: CALC OSMOLALITY 276 mosm/kg (275-300); CALCIUM 9.2 mg/dL (8.5-10.1); CARBON DIOXIDE 28.2 mmol/L (21.0-32.0); CHLORIDE - SERUM 106 mmol/L (98-107); CREATININE - SERUM 0.6 mg/dL (0.6-1.3); GLUCOSE 159 mg/dL (74-106); MAGNESIUM - SERUM 1.8 mg/dL (1.8-2.4); POTASSIUM - SERUM 3.5 mmol/L (3.5-5.1); SODIUM 137 mmol/L (136-145); UREA NITROGEN 13 mg/dL (7-18); eGFR NON AFRICAN AMERICAN > 90 mL/min (90-120)
--- NOTE | 2020-02-15 15:28 | MORECARE ---
CASE MANAGEMENT DISCHARGE SUMMARY PATIENT: MADELINE FLORES UNIT: [id number] ADM DATE: 01/26/20 AGE: 74 : 47 SEX: F ROOM/BED: D.2312 AUTHOR: KIP,DOC PHYSICIAN: REFERRING PHYSICIAN: KIMBER KAHN MD DATE OF SERVICE: 02/15/20 Discharge Plan Patient Name: MADELINE FLORES Facility: [facility]:[place] : 1945 Planned Disposition: Nursing Facility [facility] Cert Anticipated Discharge Date: Discharge Date: Expected LOS: Initial Reviewer: [email or web address] Initial Review Date: 01/26/2020 Generated: 02/15/20 4:27 pm Comments DCP- Discharge Planning Updated by [email or web address]: Shelia Schaefer on 02/15/20 2:[address] CM spoke w/ Jenny, patient's daughter, regarding peg decision . She states she spoke w/ DR Guillory and DR Sales. She states they felt is was too risky to insert a PEG at this time. She reports they said "to give her sometime to see hoe she does." She plans to speak with the doctors again on Wednesday. DCP- Discharge Planning Updated by [email or web address]: Fiona Vu on 01/29/20 8:[address] PATIENT IS A RESIDENT AT [facility] AND PLAN IS FOR HER TO RETURN THERE UPON DISCHARGE. CM WILL CONTINUE TO FOLLOW AND ASSIST NEEDED WITH DISCHARGE PLANNING NEEDS. DCPIA - Discharge Planning Initial Assessment Updated by [email or web address]: Fiona Vu on 02/02/20 5:31 pm * Is the patient Alert and Oriented? No * PCP [facility] * Pharmacy [facility] * Preadmission Environment [facility] * Facility Name [facility] * ADLs Partial Dependent * Partial ADLs (Assistance needed) Ambulation Bathing Dressing Eating Medication Management Toileting Transfers * List name and contact numbers for known caregivers / representatives who currently or will assist patient after discharge: NORI GALINDO [phone], * Verbal permission to speak to the caregivers and representatives has been obtained from the patient. Yes * Community resources currently utilized None * Additional services required to return to the preadmission environment? No * Can the patient safely return to the preadmission environment? Yes * Has this patient been hospitalized within the prior 30 days at any hospital? No Last DP export: 02/02/20 4:34 p Patient Name: MADELINE FLORES Page [phone] at 1528 All edits/amendments must be made on the electronic document DICTATION DATE: 02/15/201526 DELIVERY DIRECTOR: ROSSI 02/15/201526 RPT#: [id number] DC DATE: STATUS: ADM IN [facility] [address] [place] [address] END OF REPORT
--- NOTE | 2020-02-15 19:07 | NUR ---
0900 RESTING QUIETLY WITH EYES CLOSED
--- NOTE | 2020-02-15 19:07 | NUR ---
0700 REPORT RECEIVED ASSESSMENT COMPLETE
--- NOTE | 2020-02-15 19:08 | NUR ---
1200 TPN ONGOING LIPIDS ALSO INFUSING
--- NOTE | 2020-02-15 19:30 | NUR ---
REPORT RECIEVED, SHIFT ASSESSMENT COMPLETE, PT IS CONFUSED LYING IN BED, ON 3L HFNC WITH 95% O2 SAT. ALL PPP, VSS, WILL CON'T TO MONITOR
[2020-02-16] VITALS (12 sets, daily range): BP systolic 90–115; BP diastolic 38–80
[2020-02-16 04:29] LABS: CALC OSMOLALITY 274 mosm/kg (275-300); CALCIUM 8.9 mg/dL (8.5-10.1); CARBON DIOXIDE 26.9 mmol/L (21.0-32.0); CHLORIDE - SERUM 106 mmol/L (98-107); CREATININE - SERUM 0.6 mg/dL (0.6-1.3); GLUCOSE 132 mg/dL (74-106); MAGNESIUM - SERUM 1.9 mg/dL (1.8-2.4); PHOSPHOROUS 2.3 mg/dL (2.5-4.9); POTASSIUM - SERUM 4.3 mmol/L (3.5-5.1); SODIUM 136 mmol/L (136-145); UREA NITROGEN 14 mg/dL (7-18); eGFR NON AFRICAN AMERICAN > 90 mL/min (90-120)
--- NOTE | 2020-02-16 04:45 | NUR ---
COMPLETE BATH AND LINEN CHANGE
--- NOTE | 2020-02-16 07:00 | NUR ---
PT REPORT RECEIVED FROM PATIENT SCHEDULING COORDINATOR NURSE. NO ACUTE SIGNS OF DISTRESS NOTED. PT REFUSING TO EAT BREAKFAST TRAY. STILL ON TPN. SHIFT ASSESSMENT COMPLETED. WILL CONTINUE TO MONITOR
--- NOTE | 2020-02-16 07:23 | NUR ---
Nutrition follow-up: Chart reviewed Labs: PO4 low, M.9 TPN adjusted and new order sent RDN following.
[2020-02-16 12:08] LABS: BASOPHILS 0.1 % (0-2); EOSINOPHILS 1.7 % (0-7); HEMATOCRIT 40.8 % (36.0-48.0); IMMATURE GRANULOCYTES 3.8 % (0-5); LYMPHOCYTES 15.8 % (15-50); MCHC 31.9 g/dL (31.0-37.0); MCV 84.6 fL (80.0-100.0); MONOCYTES 8.4 % (2-11); NEUTROPHILS 70.2 % (40-80); RBC 4.82 10x6/uL (4.00-5.40); WBC 8.9 10x3/uL (4.8-10.8)
[2020-02-16 12:19] LABS: PLATELET COUNT 150 10x3/uL (130-400)
--- NOTE | 2020-02-16 18:30 | NUR ---
PT TO ROOM. SITUATED COMFORTABLY IN BED. CONFUSED AND UNABLE TO APPROPRIATELY ANSWER QUESTIONS. BED IN LOWEST POSITION, BED RAILS X2, CALL LIGHT WITHIN REACH.WILL CONTINUE TO MONITOR.
[2020-02-17 00:30] VITALS: BP 101/52
[2020-02-17 05:30] LABS: BASOPHILS 0.1 % (0-2); EOSINOPHILS 0.9 % (0-7); HEMATOCRIT 40.3 % (36.0-48.0); HEMOGLOBIN 13.1 g/dL (12-16); IMMATURE GRANULOCYTES 2.1 % (0-5); LYMPHOCYTES 10.7 % (15-50); MCH 27.3 pg (26.0-34.0); MCHC 32.5 g/dL (31.0-37.0); MCV 84.1 fL (80.0-100.0); MEAN PLATELET VOLUME 9.8 fL (7.4-10.4); MONOCYTES 6.5 % (2-11); NEUTROPHILS 79.7 % (40-80); PLATELET COUNT 155 10x3/uL (130-400); RBC 4.79 10x6/uL (4.00-5.40); RDW 18.3 % (11.5-14.5)
[2020-02-17 05:52] LABS: CALC OSMOLALITY 272 mosm/kg (275-300); CALCIUM 9.3 mg/dL (8.5-10.1); CARBON DIOXIDE 27.6 mmol/L (21.0-32.0); CHLORIDE - SERUM 104 mmol/L (98-107); CREATININE - SERUM 0.6 mg/dL (0.6-1.3); GLUCOSE 128 mg/dL (74-106); MAGNESIUM - SERUM 2.2 mg/dL (1.8-2.4); PHOSPHOROUS 2.4 mg/dL (2.5-4.9); SODIUM 135 mmol/L (136-145); UREA NITROGEN 16 mg/dL (7-18); eGFR NON AFRICAN AMERICAN > 90 mL/min (90-120)
--- NOTE | 2020-02-17 08:16 | NUR ---
Nutrition follow-up: Chart reviewed Labs reviewed; PO4 slightly low; recommend PO4 rider. Na also slightly low, will continue to monitor Will continue current TPN formula at 40 ml/hr at this time Intralipids Q 48 RDN following.
[2020-02-17 08:57] VITALS: BP 113/58
--- NOTE | 2020-02-17 09:21 | NUR ---
PT CONFUSED, CALLING OUT WHEN YOU TOUCH HER. CLEAN AND DRY AT THIS TIME. ASSISTED BY [employer] JUJU MAR. CL IN REACH, SRX2.
[2020-02-17 12:47] VITALS: BP 108/54
[2020-02-17 17:18] VITALS: BP 109/47
[2020-02-18] VITALS (7 sets, daily range): BP systolic 74–99; BP diastolic 44–54
[2020-02-18 06:13] LABS: BASOPHILS 0.1 % (0-2); EOSINOPHILS 0 % (0-7); HEMATOCRIT 37.4 % (36.0-48.0); HEMOGLOBIN 12.1 g/dL (12-16); IMMATURE GRANULOCYTES 1.8 % (0-5); LYMPHOCYTES 5.2 % (15-50); MCH 27.1 pg (26.0-34.0); MCHC 32.4 g/dL (31.0-37.0); MCV 83.9 fL (80.0-100.0); MEAN PLATELET VOLUME 10.3 fL (7.4-10.4); MONOCYTES 3.5 % (2-11); NEUTROPHILS 89.4 % (40-80); PLATELET COUNT 131 10x3/uL (130-400); RBC 4.46 10x6/uL (4.00-5.40); RDW 18.5 % (11.5-14.5); WBC 7.4 10x3/uL (4.8-10.8)
[2020-02-18 06:35] LABS: ALBUMIN 1.8 g/dL (3.4-5.0); ALKALINE PHOSPHATASE 101 U/L (30-120); ALT (SGPT) 26 U/L (10-68); BILIRUBIN - TOTAL 0.63 mg/dL (0.2-1.3); CALC OSMOLALITY 270 mosm/kg (275-300); CALCIUM 8.6 mg/dL (8.5-10.1); CARBON DIOXIDE 23.3 mmol/L (21.0-32.0); CHLORIDE - SERUM 104 mmol/L (98-107); CREATININE - SERUM 0.7 mg/dL (0.6-1.3); MAGNESIUM - SERUM 2.2 mg/dL (1.8-2.4); PHOSPHOROUS 2.9 mg/dL (2.5-4.9); POTASSIUM - SERUM 4.2 mmol/L (3.5-5.1); PROTEIN - SERUM 4.2 g/dL (6.4-8.2); SODIUM 132 mmol/L (136-145); UREA NITROGEN 14 mg/dL (7-18); eGFR NON AFRICAN AMERICAN 87 mL/min (90-120)
[2020-02-18 06:41] LABS: GLUCOSE 182 mg/dL (74-106)
--- NOTE | 2020-02-18 08:43 | NUR ---
Nutrition follow-up: Chart and labs reviewed. Na continues trending down. Glucose still under 200. TPN formula adjusted with increased NaCl. RDN following.
--- NOTE | 2020-02-18 10:25 | NUR ---
PT O2 WAS CHANGING RAPIDLY, GOING FROM 60'S TO 90'S. TOOK O2 SEVERAL DIFFERENT WAYS RESULTS STILL SHOWED FREQUENT CHAGNES. PT WAS TACHYPNIC, APPEARED TO BE GRUNTING AND CLENCHING IF NEEDING A BM. CALLED RAPID D/T WORSENING CONDIITON. RT BECAME INVOLVE,D ATTEMPTED SIMPLE MASK BUT WAS LATER ABLE TO SWITCH BACK TO HFNC. TRANSFERED TO ICU FOR INCREASED OBSERVATION PER DR. SONG.
--- NOTE | 2020-02-18 10:40 | NUR ---
PATIENT TRANSFER TO ICU FROM [facility]. PATIENT TRANSFERRED TO BED WITHOUT DIFFICULTY. PATIENT IS ON HF NC @ 6 L FRANNY 02SAT 95%. RIJ INFUSING TPN AT 40 AND NS AT 20. ALBERT CATHETER IN PLACE DRAINING CONC DARK URINE. PATIENT LAYING ON BACK WITH EYES CLOSED AND MOANING WITH EACH BREATH. PATIENT AROUSES TO VOICE. DOES NOT ANSWER QUESTIONS. BP 96/52 T 99.3 HR 84 R 18. WILL CONTINUE WITH PLAN OF CARE. SR UPX 2 BED IN LOW POSITION AND CALL LIGHT IN REACH.
--- NOTE | 2020-02-18 12:33 | NUR ---
DR DEVI ON UNIT. NO NEW ORDERS RECEIVED.
[2020-02-19] VITALS (57 sets, daily range): BP systolic 78–163; BP diastolic 40–598
[2020-02-19 05:42] LABS: BASOPHILS 0.1 % (0-2); EOSINOPHILS 0.1 % (0-7); HEMATOCRIT 33.6 % (36.0-48.0); HEMOGLOBIN 10.9 g/dL (12-16); IMMATURE GRANULOCYTES 0.4 % (0-5); LYMPHOCYTES 5.3 % (15-50); MCH 27.2 pg (26.0-34.0); MCHC 32.4 g/dL (31.0-37.0); MCV 83.8 fL (80.0-100.0); MEAN PLATELET VOLUME 10.5 fL (7.4-10.4); MONOCYTES 5.2 % (2-11); NEUTROPHILS 88.9 % (40-80); RBC 4.01 10x6/uL (4.00-5.40); RDW 18.4 % (11.5-14.5)
[2020-02-19 05:51] LABS: PLATELET COUNT 95 10x3/uL (130-400); WBC 9.7 10x3/uL (4.8-10.8)
[2020-02-19 06:37] LABS: ALBUMIN 1.7 g/dL (3.4-5.0); ALKALINE PHOSPHATASE 131 U/L (30-120); BILIRUBIN - TOTAL 0.47 mg/dL (0.2-1.3); CALCIUM 8.9 mg/dL (8.5-10.1); CARBON DIOXIDE 23.2 mmol/L (21.0-32.0); CHLORIDE - SERUM 107 mmol/L (98-107); CREATININE - SERUM 0.7 mg/dL (0.6-1.3); POTASSIUM - SERUM 4.4 mmol/L (3.5-5.1); PROTEIN - SERUM 4.2 g/dL (6.4-8.2); SODIUM 134 mmol/L (136-145); eGFR NON AFRICAN AMERICAN 87 mL/min (90-120)
[2020-02-19 06:38] LABS: ALT (SGPT) 35 U/L (10-68); CALC OSMOLALITY 282 mosm/kg (275-300); GLUCOSE 309 mg/dL (74-106); UREA NITROGEN 20 mg/dL (7-18)
[2020-02-19 07:16] LABS: MAGNESIUM - SERUM 2.6 mg/dL (1.8-2.4); PHOSPHOROUS 3.6 mg/dL (2.5-4.9)
--- NOTE | 2020-02-19 10:14 | NUR ---
PT HAD BEEN TITRATED OFF OF LEVOPHED, BUT WAS UNABLE TO MAINTAIN HER MAP AND BP. LEVOPHED STARTED BACK. WILL CONTINUE TO MONITOR.
[2020-02-19 11:35] LABS: PLATELET ESTIMATE DECREASED
--- NOTE | 2020-02-19 14:03 | NUR ---
Nutrition follow-up: Chart reviewed Labs reviewed Pt now back in ICU Refusing to eat per speech pathologist TPN continues @ 40 ml/hr with 20% 250 mol intralipids Q 48 hours Recommend PEG placement and tube feeding started within 24-48 hours to prevent gut atrophy due to prolonged TPN use. Will continue current TPN formula. RDN following.
[2020-02-20] VITALS (50 sets, daily range): BP systolic 57–168; BP diastolic 35–111
[2020-02-20 05:45] LABS: BASOPHILS 0.2 % (0-2); EOSINOPHILS 0 % (0-7); IMMATURE GRANULOCYTES 0.2 % (0-5); LYMPHOCYTES 4.2 % (15-50); MCHC 32.4 g/dL (31.0-37.0); MCV 83.3 fL (80.0-100.0); MEAN PLATELET VOLUME 10.6 fL (7.4-10.4); MONOCYTES 3.2 % (2-11); NEUTROPHILS 92.2 % (40-80); RBC 4.08 10x6/uL (4.00-5.40); RDW 18.3 % (11.5-14.5)
[2020-02-20 05:47] LABS: ALBUMIN 1.8 g/dL (3.4-5.0); ALKALINE PHOSPHATASE 120 U/L (30-120); ALT (SGPT) 31 U/L (10-68); BILIRUBIN - TOTAL 0.53 mg/dL (0.2-1.3); CALC OSMOLALITY 276 mosm/kg (275-300); CALCIUM 8.8 mg/dL (8.5-10.1); CARBON DIOXIDE 21.9 mmol/L (21.0-32.0); CHLORIDE - SERUM 106 mmol/L (98-107); CREATININE - SERUM 0.7 mg/dL (0.6-1.3); PLATELET COUNT 59 10x3/uL (130-400); POTASSIUM - SERUM 4.3 mmol/L (3.5-5.1); PROTEIN - SERUM 4.5 g/dL (6.4-8.2); SODIUM 135 mmol/L (136-145); UREA NITROGEN 15 mg/dL (7-18); WBC 5.3 10x3/uL (4.8-10.8); eGFR NON AFRICAN AMERICAN 87 mL/min (90-120)
[2020-02-20 05:51] LABS: GLUCOSE 203 mg/dL (74-106)
[2020-02-20 07:56] LABS: PHOSPHOROUS 2.9 mg/dL (2.5-4.9)
--- NOTE | 2020-02-20 08:23 | NUR ---
Nutrition follow-up: Chart reviewed Labs reviewed Will continue current TPN formula RDN following.
--- NOTE | 2020-02-20 09:44 | NUR ---
NOTED PT BEGINNING TO HAVE PAUSES ON TELEMETRY OF 1.[address] MACHUCA ON UNIT, NOTIFIED OF THIS, ORDERED EKG. EKG PERFORMED, PHYSICIAN ORDERED CARDIOLOGY CONSULT FOR EKG CHANGES/ISCHEMIA. ALSO NOTIFIED PHYSICIAN OF PLATELETS TRENDING DOWN. PHYSICIAN ORDERED HIT PANEL. ALSO BLOOD PRESSURE NOTED DROPPING, LEVOPHED TITRATED TO ORDER, SEE IV FLOWSHEET. PTS FAMILY HAVE BEEN UPDATED. WILL CONTINUE TO OBSERVE.
--- NOTE | 2020-02-20 09:55 | NUR ---
SPOKE WITH SEYMOUR HUNG APRN FOR CARDIOLOGY. STATED SHE IS ON HER WAY TO SEE PT.
--- NOTE | 2020-02-20 12:19 | NUR ---
NOTED AFTER PTS FAMILY, NORI, HAS SPOKEN WITH DR CEJA AND ANDREW RN. NOTED FAMILY HAS DECIDED FOR DNR STATUS AND HOSPICE CONSULT. ALSO REQUESTED COVID TEST RESTESTED. SPECIMEN SENT TO LAB. WILL CONTINUE PLAN OF CARE.
--- NOTE | 2020-02-20 13:51 | MORECARE ---
CASE MANAGEMENT DISCHARGE SUMMARY PATIENT: MADELINE FLORES UNIT: [id number] ADM DATE: 01/26/20 AGE: 74 : 47 SEX: F ROOM/BED: D.2314 AUTHOR: KIP,DOC PHYSICIAN: REFERRING PHYSICIAN: KIMBER KAHN MD DATE OF SERVICE: 02/20/20 Discharge Plan Patient Name: MADELINE FLORES Facility: [facility]:[place] : 1945 Planned Disposition: Nursing Facility [facility] Cert Anticipated Discharge Date: Discharge Date: Expected LOS: Initial Reviewer: [email or web address] Initial Review Date: 01/26/2020 Generated: 02/20/20 2:51 pm DCP- Discharge Planning Updated by [email or web address]: Shelia Schaefer on 02/15/20 2:[address] CM spoke w/ Jenny, patient's daughter, regarding peg decision . She states she spoke w/ DR Guillory and DR Sales. She states they felt is was too risky to insert a PEG at this time. She reports they said "to give her sometime to see hoe she does." She plans to speak with the doctors again on Wednesday. DCP- Discharge Planning Updated by [id number]: Fiona Vu on 01/29/20 8:[address] PATIENT IS A RESIDENT AT [facility] AND PLAN IS FOR HER TO RETURN THERE UPON DISCHARGE. CM WILL CONTINUE TO FOLLOW AND ASSIST NEEDED WITH DISCHARGE PLANNING NEEDS. DCPIA - Discharge Planning Initial Assessment Updated by [email or web address]: Fiona Vu on 02/02/20 5:31 pm * Is the patient Alert and Oriented? No * PCP [facility] * Pharmacy [facility] * Preadmission Environment [facility] * Facility Name [facility] * ADLs Partial Dependent * Partial ADLs (Assistance needed) Ambulation Bathing Dressing Eating Medication Management Toileting Transfers * List name and contact numbers for known caregivers / representatives who currently or will assist patient after discharge: NORI GALINDO [phone], * Verbal permission to speak to the caregivers and representatives has been obtained from the patient. Yes * Community resources currently utilized None * Additional services required to return to the preadmission environment? No * Can the patient safely return to the preadmission environment? Yes * Has this patient been hospitalized within the prior 30 days at any hospital? No External Providers [facility] Next Contact Date: Service Request Date: Service Type: Resolution: Reviewer: Comments: Last DP export: 02/15/20 2:28 pm Patient Name: MADELINE FLORES Page [phone] at 1351 All edits/amendments must be made on the electronic document DICTATION DATE: 02/20/20 1351 COLLATERAL SPECIALIST: ROSSI 02/20/20 1351 RPT#: [id number] DC DATE: STATUS: ADM IN [facility] [address] [place] [address] END OF REPORT
--- NOTE | 2020-02-20 17:17 | NUR ---
PER DR MACHUCA AND PTS FAMILY REQUEST, DO NOT DC MEDS SUCH LEVOPHED UNTIL PTS SON GETS HERE LATER TODAY. WILL HOLD HOSPICE ADMISSION UNTIL SON ARRIVES PER REQUESTS.
--- NOTE | 2020-02-20 18:50 | NUR ---
PER HOSPICE NURSE, PTS FAMILY IS ON THEIR WAY TO SEE PT, AND THEY WANTED TO WAIT FOR ALL DRIPS TO BE STOPPED UNTIL AFTER THEY CAN SEE PT.
--- NOTE | 2020-02-20 19:57 | MORECARE ---
CASE MANAGEMENT DISCHARGE SUMMARY PATIENT: MADELINE FLORES UNIT: [id number] ADM DATE: 01/26/20 AGE: 74 : 47 SEX: F ROOM/BED: D.2314 AUTHOR: KIP,DOC PHYSICIAN: REFERRING PHYSICIAN: KIMBER KAHN MD DATE OF SERVICE: 02/20/20 Discharge Plan Patient Name: MADELINE FLORES Facility: [facility]:[place] : 1945 Planned Disposition: Nursing Facility [facility] Cert Anticipated Discharge Date: Discharge Date: 02/20/2020 Expected LOS: Initial Reviewer: [email or web address] Initial Review Date: 01/26/2020 Generated: 02/20/20 8:57 pm Comments DCP- Discharge Planning Updated by [email or web address]: Fiona Vu on 02/20/20 6:[address] Family has decided to make patient comfort care. [facility] for Inpatient Hospice. CM contacted [facility] and faxed over records patient's son to be into town this evening around 7pm. Plan to admit to hospice at that time. CM will continue to follow and assist as needed with discharge planning / needs. DCP- Discharge Planning Updated by [id number]: Shelia Schaefer on 02/15/20 2:[address] CM spoke w/ Jenny, patient's daughter, regarding peg decision . She states she spoke w/ DR Guillory and DR Sales. She states they felt is was too risky to insert a PEG at this time. She reports they said "to give her sometime to see hoe she does." She plans to speak with the doctors again on Wednesday. DCP- Discharge Planning Updated by [email or web address]: Fiona Vu on 01/29/20 8:[address] PATIENT IS A RESIDENT AT [facility] AND PLAN IS FOR HER TO RETURN THERE UPON DISCHARGE. CM WILL CONTINUE TO FOLLOW AND ASSIST NEEDED WITH DISCHARGE PLANNING NEEDS. DCPIA - Discharge Planning Initial Assessment Updated by [email or web address]: Fiona Vu on 02/02/20 5:31 pm * Is the patient Alert and Oriented? No * PCP [facility] * Pharmacy [facility] * Preadmission Environment [facility] * Facility Name [facility] * ADLs Partial Dependent * Partial ADLs (Assistance needed) Ambulation Bathing Dressing Eating Medication Management Toileting Transfers * List name and contact numbers for known caregivers / representatives who currently or will assist patient after discharge: NORI GALINDO [phone], * Verbal permission to speak to the caregivers and representatives has been obtained from the patient. Yes * Community resources currently utilized None * Additional services required to return to the preadmission environment? No * Can the patient safely return to the preadmission environment? Yes * Has this patient been hospitalized within the prior 30 days at any hospital? No Last DP export: 02/20/20 12:52 p Patient Name: MADELINE FLORES Page [phone] at 1956 All edits/amendments must be made on the electronic document DICTATION DATE: 02/20/201956 H[place] MILL OBSERVER: ROSSI 02/20/201956 RPT#: [id number] DC DATE:02/20/20 STATUS: DIS IN [facility] [address] [place] [address] END OF REPORT
== END 2020-02-20 19:32 | disposition hospice, inpatient (51) | DRG 871 ==
LOC: D.ER 11:37 → D.ICU 15:26 → D.M2 02-16 18:16 → D.ICU 02-18 10:27
PROVIDERS: Emergency Medicine; Family Medicine; Internal Medicine Nephrology; Internal Medicine Pulmonary Disease; ADMIT Family Medicine; ATTEND Family Medicine
PROC: 05HM33Z Insertion of Infusion Device into Right Internal Jugular Vein, Percutaneous Approach (ICD-10-PCS; principal; 2020-01-26)
DX: A41.9 Sepsis, unspecified organism (principal); U07.1 COVID-19; R65.21 Severe sepsis with septic shock; G93.41 Metabolic encephalopathy; J18.9 Pneumonia, unspecified organism; N39.0 Urinary tract infection, site not specified; N17.9 Acute kidney failure, unspecified; I12.9 Hypertensive chronic kidney disease with stage 1 through stage 4 chronic kidney disease, or unspecified chronic kidney disease; E11.22 Type 2 diabetes mellitus with diabetic chronic kidney disease; F01.50 Vascular dementia, unspecified severity, without behavioral disturbance, psychotic disturbance, mood disturbance, and anxiety; N18.3 Chronic kidney disease, stage 3 (moderate); E87.6 Hypokalemia; R09.02 Hypoxemia; E03.9 Hypothyroidism, unspecified; N95.2 Postmenopausal atrophic vaginitis; E83.52 Hypercalcemia; R53.81 Other malaise; D69.6 Thrombocytopenia, unspecified

== ENCOUNTER 2020-02-20 19:37 | Inpatient (IN) | payer OTHER ==
[~2020-02-20] VITALS: Ht 162.6 cm; Wt 91.8 kg
[~2020-02-20 19:37] MED LIST changes: +ASCORBIC ACID500 MG PO; +CRANBERRY TABLET; +GERI-LANTA; +RISAMINE OINTM113 GM TP; +SENNA LAXATIVE8.6 MG PO; +SYNTHROID175 MCG PO; +ULORIC80 MG PO; +ZINC-220220 MG PO
[2020-02-20 20:54] VITALS: BP 101/55; Ht 162.6 cm; Wt 91.8 kg
[2020-02-21] VITALS: BP 80/36
--- NOTE | 2020-02-21 00:15 | NUR ---
PT BROUGHT TO ROOM 2200 FROM ICU BY BED. TRANSFERED TO BED IN ROOM. ON ROOM AIR. MOUTH BREATHING, RESP SLIGHTLY LABORED. RIGHT IJ INFUSING MORPHINE 0.5MG/CONT. ALBERT IN PLACE. EDEMA TO BILAT ARMS. PROPPED ON PILLOWS. LEGS ELEVATED. HEEL PROTECTORS ON BILAT. SON AT BEDSIDE. DENIES NEEDS AT THIS TIME. WILL CTM
[2020-02-21 10:09] VITALS: BP 54/30
--- NOTE | 2020-02-21 13:20 | NUR ---
PT FAMILY PRESENTED TO DESK AND REPORTED PT PASSING. ENTERED PT ROOM. NO AUDIBLE HEART TONES. PT IS BREATHLESS. CONTACTED [facility] TO REPORT .
--- NOTE | 2020-02-21 14:45 | NUR ---
[facility] CONTACTED FOR PT . REPORTED PT NOT APPROPRIATE DUE TO SEPSIS
== END 2020-02-21 16:12 | DRG 951 ==
LOC: D.ICU 19:37 → D.MS 19:37
PROVIDERS: ADMIT Legal Medicine; ATTEND Legal Medicine
DX: Z51.5 Encounter for palliative care (principal)